=== PATIENT | male | born 1995 | race African-American/Black ===

== ENCOUNTER 2019-06-28 09:36 | Inpatient (IN) | payer MEDICAID ==
[~2019-06-28] VITALS: Ht 188 cm; Wt 65.9 kg
--- NOTE | 2019-06-28 09:53 | NUR ---
Patient from triage with steady gait. C/O diffuse abdminal pain. Decreased PO intake, N/V/D. Appears uncomfortable
[2019-06-28] MEDS ORDERED: FAMOTIDINE 20 MG/2 ML IVPush ONE (10:00)
[2019-06-28] MEDS ORDERED: SODIUM CHLORIDE FLUSH 10ML SYR IVF ONE (10:00)
[2019-06-28] MEDS ORDERED: SODIUM CHLORIDE 0.9% 1,000ML IVBOLUS ONE (10:00)
[2019-06-28] MEDS ORDERED: MORPHINE SULFATE 4 MG/ML, 1ML IVPush PRN ×2 (10:00→13:30)
[2019-06-28] MEDS ORDERED: ONDANSETRON 2MG/ML, 2ML IVPush ONE (10:00)
[2019-06-28 10:36] LABS: MEAN CORPUSCULAR HEMOGLOBIN 37.8 pg (27.5-34.5); MEAN CORPUSCULAR HGB CONC 33.4 g/dL (33.2-36.2); MEAN CORPUSCULAR VOLUME 113.2 fL (81-97); MEAN PLATELET VOLUME 7.6 fL (7.4-10.4); PLATELET COUNT 361 x10^3/uL (130-400); RED BLOOD COUNT 3.46 x10^6/uL (4.38-5.82); RED CELL DISTRIBUTION WIDTH 14.4 % (9.4-14.8)
[2019-06-28 10:41] LABS: ALANINE AMINOTRANSFERASE 20 U/L (12-78); ALBUMIN 1.8 g/dL (3.4-5.0); CALCIUM 7.7 mg/dL (8.5-10.1); CHLORIDE 90 mmol/L (98-107); CREATININE 0.41 mg/dL (0.7-1.3)
[2019-06-28 10:43] LABS: ALKALINE PHOSPHATASE 58 U/L (45-117); BILIRUBIN,TOTAL 0.6 mg/dL (0.2-1.0); TOTAL PROTEIN 6.4 g/dL (6.4-8.2)
[2019-06-28 10:52] LABS: ANION GAP 8 mmol/L (5-15); MD YES
[2019-06-28 10:54] LABS: ANISOCYTOSIS 1+; BAND#(MANUAL) 0.28 x10^3/uL; BANDS%(MANUAL) 2 % (0-7); EOS#(MANUAL) 0.14 x10^3/uL (0.0-0.4); EOS% (MANUAL) 1 % (1-7); LYMPHS% (MANUAL) 5 % (22-44); MONOS#(MANUAL) 0.28 x10^3/uL (0.3-2.7); MONOS% (MANUAL) 2 % (2-9); POLYCHROMASIA 1+; SEG#(MANUAL) 12.51 x10^3/uL (1.8-6.8); SEGS% (MANUAL) 90 % (42-75)
[2019-06-28 10:55] LABS: <PLATELET ESTIMATE> ADEQUATE; <PLT MORPHOLOGY> NORMAL PLT MORPH
[2019-06-28 10:57] LABS: TARGET CELLS 1+
[2019-06-28] MEDS ORDERED: ONDANSETRON 2MG/ML, 2ML ONE (11:00)
[2019-06-28] MEDS ORDERED: MORPHINE SULFATE 4 MG/ML, 1ML ONE (11:00)
[2019-06-28] MEDS ORDERED: FAMOTIDINE 20 MG/2 ML ONE (11:01)
[2019-06-28] MEDS ORDERED: POTASSIUM CHLORIDE 40 MEQ in SODIUM CHLORIDE 0.9% 1,000 ML IV ONE (11:17)
[2019-06-28] MEDS ORDERED: NS + 40MEQ KCL 1,000 ML IV ONE ×2 (11:30→12:06)
[2019-06-28] MEDS ORDERED: MAGNESIUM SULFATE 1 GM in SODIUM CHLORIDE 0.9% 50 ML IV ONE (11:30)
[2019-06-28] MEDS ORDERED: OMNIPAQUE 350 MG/ML, 100ML BOTTLE ONE (11:47)
[2019-06-28] MEDS ORDERED: PIPERACILLIN/TAZO/PMX 3.375GM 50 ML ONE (12:53)
[2019-06-28] MEDS ORDERED: VANCOMYCIN PER PHARMACY MC ONE (13:00)
[2019-06-28] MEDS ORDERED: VANCOMYCIN 1,100 MG in SODIUM CHLORIDE 0.9% 250 ML IV ONE (13:00)
[2019-06-28] MEDS ORDERED: PIPERACILLIN/TAZO/PMX 3.375GM 50 ML IVPB ONE (13:00)
[2019-06-28] MEDS ORDERED: POTASSIUM CHLORIDE 20 MEQ in SODIUM CHLORIDE 0.9% 1,000 ML IV ONE (13:27)
[2019-06-28] MEDS ORDERED: ONDANSETRON 2MG/ML, 2ML IVPush PRN (13:30)
[2019-06-28] MEDS ORDERED: SODIUM CHLORIDE FLUSH 10ML SYR IVF PRN (13:30)
[2019-06-28] MEDS ORDERED: MAGNESIUM SULFATE 2 GM, THIAMINE 200 MG, MVI ADULT 10 ML, FOLIC ACID 1 MG in D5%-0.9% N... IV SCH (13:38)
[2019-06-28] MEDS: SODIUM CHLORIDE 0.9% 1,000 ML IV SCH ×2 (13:38→20:35)
--- NOTE | 2019-06-28 13:43 | NUR ---
TASK RN: PT MEDICATED PER EMAR, SECOND PIV PLACED.
[2019-06-28] MEDS ORDERED: LORazepam 0.5MG TABLET PO PRN (14:00)
[2019-06-28] MEDS ORDERED: ACETAMINOPHEN 325 MG TABLET PO PRN (14:00)
[2019-06-28] MEDS ORDERED: POTASSIUM CHLORIDE 40 MEQ in SODIUM CHLORIDE 0.9% 100 ML IV ONE (14:00)
[2019-06-28] MEDS ORDERED: LORazepam 2 MG/ML, 1ML IV PRN ×3 (14:00)
[2019-06-28] MEDS ORDERED: VANCOMYCIN PER PHARMACY MC PRN (14:00)
[2019-06-28] MEDS ORDERED: LORazepam 1MG TABLET PO PRN ×2 (14:00)
--- NOTE | 2019-06-28 14:26 | NUR ---
Report given to Patricia NAIR on 4.
[2019-06-28 14:28] LABS: MICROSCOPIC NOT IND
[2019-06-28 14:35] LABS: CULTURE INDICATED? NO
[2019-06-28 15:05] VITALS: BP 114/71
[2019-06-28] MEDS ORDERED: ELVI1TAB2 PO (15:19)
[2019-06-28] MEDS ORDERED: PHARMACOKINETIC MONITORING MC PRN (15:30)
[2019-06-28] MEDS ORDERED: PHARMACOKINETIC CONSULTATION MC ONE (15:30)
[2019-06-28] MEDS ORDERED: POTASSIUM CHLORIDE 40 MEQ in SODIUM CHLORIDE 0.9% 500 ML IV ONE (15:50)
[2019-06-28] MEDS ORDERED: POTASSIUM PHOSPHATE 22 MEQ in SODIUM CHLORIDE 0.9% 500 ML IV ONE (17:00)
[2019-06-28] MEDS: HYDROmorphone 2 MG/ML, 1ML IVPush PRN ×2 (17:32→20:35)
[2019-06-28 20:00] VITALS: BP 123/76
[2019-06-28] MEDS: PIPERACILLIN/TAZO/PMX 3.375GM 50 ML IV SCH (20:35)
[2019-06-29] MEDS: VANCOMYCIN PMX 1GM/200ML 200 ML IV SCH ×2 (01:05→15:39)
[2019-06-29 02:00] VITALS: BP 121/77
[2019-06-29] MEDS: PIPERACILLIN/TAZO/PMX 3.375GM 50 ML IV SCH ×4 (02:11→20:35)
[2019-06-29] MEDS: HYDROmorphone 2 MG/ML, 1ML IVPush PRN ×7 (04:17→20:36)
[2019-06-29] MEDS ORDERED: HYDROmorphone 1 MG/ML, 1ML VIAL ONE ×2 (05:38→08:50)
[2019-06-29] MEDS: SODIUM CHLORIDE 0.9% 1,000 ML IV SCH ×3 (05:41→15:40)
[2019-06-29 06:04] LABS: MEAN CORPUSCULAR HEMOGLOBIN 37.7 pg (27.5-34.5); MEAN CORPUSCULAR HGB CONC 32.9 g/dL (33.2-36.2); MEAN CORPUSCULAR VOLUME 114.8 fL (81-97); MEAN PLATELET VOLUME 7.8 fL (7.4-10.4); PLATELET COUNT 391 x10^3/uL (130-400); RED BLOOD COUNT 3.12 x10^6/uL (4.38-5.82); RED CELL DISTRIBUTION WIDTH 14.5 % (9.4-14.8)
[2019-06-29 06:12] LABS: ALBUMIN 1.5 g/dL (3.4-5.0); CALCIUM 6.9 mg/dL (8.5-10.1); CHLORIDE 100 mmol/L (98-107)
[2019-06-29 06:19] LABS: ALANINE AMINOTRANSFERASE 18 U/L (12-78); ALKALINE PHOSPHATASE 48 U/L (45-117); ANION GAP 6 mmol/L (5-15); BILIRUBIN,TOTAL 0.9 mg/dL (0.2-1.0); CREATININE 0.55 mg/dL (0.7-1.3); TOTAL PROTEIN 5.3 g/dL (6.4-8.2)
[2019-06-29 06:40] LABS: BASOPHILS # (AUTO) 0.02 x10^3/uL (0-0.1); BASOPHILS % (AUTO) 0 % (0-1); EOSINOPHILS # (AUTO) 0.21 x10^3/uL (0-0.4); EOSINOPHILS % (AUTO) 2 % (1-7); LYMPHOCYTES # (AUTO) 1.17 x10^3/uL (1-3.4); LYMPHOCYTES % (AUTO) 9 % (22-44); MD SCAN; MONOCYTES # (AUTO) 0.86 x10^3/uL (0.2-0.8); MONOCYTES % (AUTO) 6 % (2-9); NEUTROPHILS # (AUTO) 11.07 x10^3/uL (1.8-6.8); NEUTROPHILS % (AUTO) 83 % (42-75)
[2019-06-29] MEDS: SENNA/DOCUSATE TABLET PO SCH (07:35)
[2019-06-29] MEDS: PANTOPRAZOLE 40 MG IV IVPush SCH (07:35)
[2019-06-29 07:48] VITALS: BP 127/87
[2019-06-29] MEDS: ONDANSETRON 2MG/ML, 2ML IVPush PRN ×3 (10:31→22:23)
[2019-06-29 12:41] VITALS: BP 116/70
[2019-06-29] MEDS: D5%-0.45NACL+KCL 40MEQ 1,000 ML IV SCH ×2 (14:30→20:56)
[2019-06-29 20:08] VITALS: BP 114/80
[2019-06-29] MEDS: MELATONIN 5 MG TABLET PO PRN (20:35)
[2019-06-30 01:46] VITALS: BP 112/73
[2019-06-30] MEDS: HYDROmorphone 2 MG/ML, 1ML IVPush PRN ×7 (01:51→22:18)
[2019-06-30] MEDS: PIPERACILLIN/TAZO/PMX 3.375GM 50 ML IV SCH ×4 (01:51→20:10)
[2019-06-30] MEDS: PROMETHAZINE 25 MG/ML, 1ML IM PRN ×2 (02:06→22:52)
[2019-06-30] MEDS: SODIUM CHLORIDE 0.9% 1,000 ML IV SCH ×3 (02:06→22:25)
[2019-06-30] MEDS: VANCOMYCIN PMX 1GM/200ML 200 ML IV SCH (02:51)
[2019-06-30] MEDS: D5%-0.45NACL+KCL 40MEQ 1,000 ML IV SCH (04:55)
[2019-06-30 05:30] LABS: MEAN CORPUSCULAR HEMOGLOBIN 37.9 pg (27.5-34.5); MEAN CORPUSCULAR HGB CONC 32.9 g/dL (33.2-36.2); MEAN CORPUSCULAR VOLUME 115.1 fL (81-97); MEAN PLATELET VOLUME 7.7 fL (7.4-10.4); PLATELET COUNT 337 x10^3/uL (130-400); RED BLOOD COUNT 3.06 x10^6/uL (4.38-5.82); RED CELL DISTRIBUTION WIDTH 14.6 % (9.4-14.8)
[2019-06-30 05:32] LABS: ALBUMIN 1.3 g/dL (3.4-5.0); ANION GAP 6 mmol/L (5-15); CALCIUM 6.9 mg/dL (8.5-10.1); CHLORIDE 100 mmol/L (98-107)
[2019-06-30 06:33] LABS: BASOPHILS # (AUTO) 0.04 x10^3/uL (0-0.1); BASOPHILS % (AUTO) 0 % (0-1); EOSINOPHILS % (AUTO) 1 % (1-7); LYMPHOCYTES % (AUTO) 7 % (22-44); MD SCAN; MONOCYTES # (AUTO) 0.71 x10^3/uL (0.2-0.8); MONOCYTES % (AUTO) 5 % (2-9); NEUTROPHILS % (AUTO) 86 % (42-75)
[2019-06-30] MEDS ORDERED: POTASSIUM CHLORIDE 40 MEQ in SODIUM CHLORIDE 0.9% 500 ML IV ONE (08:00)
[2019-06-30 08:14] VITALS: BP 123/87
[2019-06-30] MEDS: PANTOPRAZOLE 40 MG IV IVPush SCH (08:41)
[2019-06-30] MEDS: SENNA/DOCUSATE TABLET PO SCH (08:43)
[2019-06-30 09:07] LABS: HCT (SEDRATE) 35.2 % (39.2-51.8)
[2019-06-30] MEDS: ONDANSETRON 2MG/ML, 2ML IVPush PRN (09:14)
[2019-06-30 13:19] VITALS: BP 133/88
[2019-06-30] MEDS: EMTRICITABINE HOMEMEDPO SCH ×2 (20:11→22:18)
[2019-06-30] MEDS: COBICISTAT HOMEMEDPO SCH ×2 (20:11→22:18)
[2019-06-30] MEDS: MELATONIN 5 MG TABLET PO PRN (20:11)
[2019-06-30] MEDS: ELVITEGRAVIR HOMEMEDPO SCH ×2 (20:11→22:18)
[2019-06-30] MEDS: [UNRECOGNIZED DRUG - OTHER] HOMEMEDPO SCH ×2 (20:11→22:18)
[2019-06-30] MEDS: TENOFOVIR DISOPROXIL FUMARATE HOMEMEDPO SCH ×2 (20:11→22:18)
[2019-06-30 20:45] VITALS: BP 126/84
[2019-07-01] MEDS: PIPERACILLIN/TAZO/PMX 3.375GM 50 ML IV SCH ×4 (02:11→20:55)
[2019-07-01 02:39] VITALS: BP 118/81
[2019-07-01] MEDS: SODIUM CHLORIDE 0.9% 1,000 ML IV SCH ×2 (05:20→12:22)
[2019-07-01 07:00] VITALS: BP 115/78
[2019-07-01] MEDS: HYDROmorphone 2 MG/ML, 1ML IVPush PRN ×5 (07:43→21:28)
[2019-07-01] MEDS: PANTOPRAZOLE 40 MG IV IVPush SCH (07:43)
[2019-07-01] MEDS: ONDANSETRON 2MG/ML, 2ML IVPush PRN (08:28)
[2019-07-01] MEDS: SENNA/DOCUSATE TABLET PO SCH (08:28)
[2019-07-01 10:55] LABS: MEAN CORPUSCULAR HEMOGLOBIN 37.5 pg (27.5-34.5); MEAN CORPUSCULAR HGB CONC 32.5 g/dL (33.2-36.2); MEAN CORPUSCULAR VOLUME 115.6 fL (81-97); MEAN PLATELET VOLUME 7.8 fL (7.4-10.4); PLATELET COUNT 351 x10^3/uL (130-400); RED BLOOD COUNT 3.01 x10^6/uL (4.38-5.82); RED CELL DISTRIBUTION WIDTH 14.6 % (9.4-14.8)
[2019-07-01 11:00] LABS: ANION GAP 8 mmol/L (5-15); CALCIUM 7.5 mg/dL (8.5-10.1); CHLORIDE 103 mmol/L (98-107); CREATININE 1.04 mg/dL (0.7-1.3)
[2019-07-01 11:12] LABS: BASOPHILS # (AUTO) 0.06 x10^3/uL (0-0.1); BASOPHILS % (AUTO) 0 % (0-1); EOSINOPHILS # (AUTO) 0.16 x10^3/uL (0-0.4); EOSINOPHILS % (AUTO) 1 % (1-7); LYMPHOCYTES # (AUTO) 0.65 x10^3/uL (1-3.4); LYMPHOCYTES % (AUTO) 4 % (22-44); MD SCAN; MONOCYTES # (AUTO) 0.57 x10^3/uL (0.2-0.8); MONOCYTES % (AUTO) 4 % (2-9); NEUTROPHILS # (AUTO) 13.26 x10^3/uL (1.8-6.8); NEUTROPHILS % (AUTO) 90 % (42-75)
[2019-07-01] MEDS ORDERED: POTASSIUM CHLORIDE 40 MEQ in SODIUM CHLORIDE 0.9% 500 ML IV ONE (11:30)
[2019-07-01] MEDS ORDERED: POTASSIUM CHLORIDE 20 MEQ TAB.ER.PRT PO ONE (11:30)
[2019-07-01] MEDS: PROMETHAZINE 25 MG/ML, 1ML IM PRN (11:38)
[2019-07-01 12:32] VITALS: BP 116/80
[2019-07-01 20:02] VITALS: BP 131/86
[2019-07-01] MEDS: TENOFOVIR DISOPROXIL FUMARATE HOMEMEDPO SCH (20:59)
[2019-07-01] MEDS: [UNRECOGNIZED DRUG - OTHER] HOMEMEDPO SCH (20:59)
[2019-07-01] MEDS: EMTRICITABINE HOMEMEDPO SCH (20:59)
[2019-07-01] MEDS: COBICISTAT HOMEMEDPO SCH (20:59)
[2019-07-01] MEDS: ELVITEGRAVIR HOMEMEDPO SCH (20:59)
[2019-07-02] MEDS: SODIUM CHLORIDE 0.9% 1,000 ML IV SCH (01:48)
[2019-07-02 01:51] VITALS: BP 112/78
[2019-07-02] MEDS: PIPERACILLIN/TAZO/PMX 3.375GM 50 ML IV SCH ×4 (03:47→21:45)
[2019-07-02 06:48] LABS: CHLORIDE 109 mmol/L (98-107)
[2019-07-02 06:49] LABS: ANION GAP 9 mmol/L (5-15); CALCIUM 7.4 mg/dL (8.5-10.1); CREATININE 0.89 mg/dL (0.7-1.3)
[2019-07-02 07:04] LABS: MEAN CORPUSCULAR HEMOGLOBIN 37.1 pg (27.5-34.5); MEAN CORPUSCULAR HGB CONC 32.8 g/dL (33.2-36.2); MEAN CORPUSCULAR VOLUME 112.9 fL (81-97); MEAN PLATELET VOLUME 7.9 fL (7.4-10.4); PLATELET COUNT 323 x10^3/uL (130-400); RED BLOOD COUNT 2.85 x10^6/uL (4.38-5.82); RED CELL DISTRIBUTION WIDTH 14.7 % (9.4-14.8)
[2019-07-02 07:07] VITALS: BP 130/90
[2019-07-02 07:52] LABS: BASOPHILS # (AUTO) 0.01 x10^3/uL (0-0.1); BASOPHILS % (AUTO) 0 % (0-1); EOSINOPHILS # (AUTO) 0.05 x10^3/uL (0-0.4); EOSINOPHILS % (AUTO) 0 % (1-7); LYMPHOCYTES # (AUTO) 0.83 x10^3/uL (1-3.4); LYMPHOCYTES % (AUTO) 7 % (22-44); MD SCAN; MONOCYTES # (AUTO) 0.71 x10^3/uL (0.2-0.8); MONOCYTES % (AUTO) 6 % (2-9); NEUTROPHILS # (AUTO) 10.55 x10^3/uL (1.8-6.8); NEUTROPHILS % (AUTO) 87 % (42-75)
[2019-07-02] MEDS: SENNA/DOCUSATE TABLET PO SCH (08:18)
[2019-07-02] MEDS: PANTOPRAZOLE 40 MG IV IVPush SCH (08:18)
[2019-07-02] MEDS: BISACODYL 10 MG SUPP PR ONE ×2 (10:50→10:52)
[2019-07-02 12:23] VITALS: BP 129/90
[2019-07-02] MEDS ORDERED: POTASSIUM CHLORIDE 10 MEQ in SODIUM CHLORIDE 0.9% 1,000 ML IV SCH (13:38)
[2019-07-02] MEDS: POTASSIUM CHLORIDE 10 MEQ in SODIUM CHLORIDE 0.9% 1,000 ML IV SCH ×2 (14:53→21:44)
[2019-07-02] MEDS: HYDROmorphone 2 MG/ML, 1ML IVPush PRN ×2 (15:08→21:45)
[2019-07-02 19:27] VITALS: BP 122/84
[2019-07-02] MEDS: ELVITEGRAVIR HOMEMEDPO SCH (21:00)
[2019-07-02] MEDS: TENOFOVIR DISOPROXIL FUMARATE HOMEMEDPO SCH (21:00)
[2019-07-02] MEDS: COBICISTAT HOMEMEDPO SCH (21:00)
[2019-07-02] MEDS: EMTRICITABINE HOMEMEDPO SCH (21:00)
[2019-07-02] MEDS: [UNRECOGNIZED DRUG - OTHER] HOMEMEDPO SCH (21:00)
[2019-07-03 01:30] VITALS: BP 125/75
[2019-07-03] MEDS: PIPERACILLIN/TAZO/PMX 3.375GM 50 ML IV SCH ×4 (03:00→21:06)
[2019-07-03] MEDS: POTASSIUM CHLORIDE 10 MEQ in SODIUM CHLORIDE 0.9% 1,000 ML IV SCH ×2 (05:18→15:22)
[2019-07-03 08:05] VITALS: BP 130/83
[2019-07-03 08:55] LABS: MEAN CORPUSCULAR HEMOGLOBIN 37.1 pg (27.5-34.5); MEAN CORPUSCULAR HGB CONC 33.5 g/dL (33.2-36.2); MEAN CORPUSCULAR VOLUME 110.9 fL (81-97); MEAN PLATELET VOLUME 7.6 fL (7.4-10.4); PLATELET COUNT 355 x10^3/uL (130-400); RED BLOOD COUNT 2.98 x10^6/uL (4.38-5.82); RED CELL DISTRIBUTION WIDTH 14.4 % (9.4-14.8)
[2019-07-03 08:57] LABS: ALANINE AMINOTRANSFERASE 18 U/L (12-78); ALBUMIN 1.4 g/dL (3.4-5.0); ANION GAP 11 mmol/L (5-15); CALCIUM 7.5 mg/dL (8.5-10.1); CHLORIDE 110 mmol/L (98-107)
[2019-07-03 08:59] LABS: ALKALINE PHOSPHATASE 49 U/L (45-117); BILIRUBIN,TOTAL 0.8 mg/dL (0.2-1.0)
[2019-07-03] MEDS: PANTOPRAZOLE 40 MG IV IVPush SCH (09:09)
[2019-07-03] MEDS: SENNA/DOCUSATE TABLET PO SCH (09:09)
[2019-07-03 09:17] LABS: BASOPHILS # (AUTO) 0.02 x10^3/uL (0-0.1); BASOPHILS % (AUTO) 0 % (0-1); EOSINOPHILS # (AUTO) 0.03 x10^3/uL (0-0.4); EOSINOPHILS % (AUTO) 0 % (1-7); LYMPHOCYTES # (AUTO) 0.52 x10^3/uL (1-3.4); LYMPHOCYTES % (AUTO) 5 % (22-44); MD SCAN; MONOCYTES # (AUTO) 0.71 x10^3/uL (0.2-0.8); MONOCYTES % (AUTO) 6 % (2-9); NEUTROPHILS # (AUTO) 9.91 x10^3/uL (1.8-6.8); NEUTROPHILS % (AUTO) 89 % (42-75)
[2019-07-03 09:57] VITALS: BP 126/89
[2019-07-03 13:38] VITALS: BP 138/81
[2019-07-03] MEDS: ENOXAPARIN 80 MG/0.8 ML SQ SCH (15:22)
[2019-07-03] MEDS: HYDROmorphone 2 MG/ML, 1ML IVPush PRN ×2 (15:23→21:06)
[2019-07-03] MEDS: ONDANSETRON ODT 4 MG PO PRN (15:35)
[2019-07-03 19:25] VITALS: BP 139/75
[2019-07-03 20:00] VITALS: BP 135/66
[2019-07-03] MEDS: COBICISTAT HOMEMEDPO SCH (21:00)
[2019-07-03] MEDS: EMTRICITABINE HOMEMEDPO SCH (21:00)
[2019-07-03] MEDS: ELVITEGRAVIR HOMEMEDPO SCH (21:00)
[2019-07-03] MEDS: [UNRECOGNIZED DRUG - OTHER] HOMEMEDPO SCH (21:00)
[2019-07-03] MEDS: TENOFOVIR DISOPROXIL FUMARATE HOMEMEDPO SCH (21:00)
[2019-07-04 02:41] VITALS: BP 125/68
[2019-07-04] MEDS: PIPERACILLIN/TAZO/PMX 3.375GM 50 ML IV SCH ×4 (03:36→23:07)
[2019-07-04] MEDS: ENOXAPARIN 80 MG/0.8 ML SQ SCH ×2 (03:36→22:19)
[2019-07-04] MEDS: HYDROmorphone 2 MG/ML, 1ML IVPush PRN ×3 (03:36→19:44)
[2019-07-04] MEDS: SENNA/DOCUSATE TABLET PO SCH (07:27)
[2019-07-04 08:42] VITALS: BP 136/72
[2019-07-04 08:44] LABS: ALANINE AMINOTRANSFERASE 20 U/L (12-78); ALBUMIN 1.3 g/dL (3.4-5.0); ANION GAP 9 mmol/L (5-15); CALCIUM 7.3 mg/dL (8.5-10.1); CHLORIDE 108 mmol/L (98-107)
[2019-07-04 08:47] LABS: ALKALINE PHOSPHATASE 41 U/L (45-117); BILIRUBIN,TOTAL 0.4 mg/dL (0.2-1.0); CREATININE 0.81 mg/dL (0.7-1.3); TOTAL PROTEIN 5.6 g/dL (6.4-8.2)
[2019-07-04] MEDS: PANTOPRAZOLE 40 MG IV IVPush SCH (08:53)
[2019-07-04] MEDS ORDERED: POTASSIUM CHLORIDE 20 MEQ TAB.ER.PRT PO ONE (09:30)
[2019-07-04] MEDS ORDERED: POTASSIUM CHLORIDE 40 MEQ in SODIUM CHLORIDE 0.9% 500 ML IV ONE (09:30)
[2019-07-04 10:06] LABS: BASOPHILS # (AUTO) 0.03 x10^3/uL (0-0.1); BASOPHILS % (AUTO) 0 % (0-1); EOSINOPHILS # (AUTO) 0.01 x10^3/uL (0-0.4); EOSINOPHILS % (AUTO) 0 % (1-7); LYMPHOCYTES # (AUTO) 1.01 x10^3/uL (1-3.4); LYMPHOCYTES % (AUTO) 13 % (22-44); MD SCAN; MEAN CORPUSCULAR HEMOGLOBIN 36.7 pg (27.5-34.5); MEAN CORPUSCULAR VOLUME 111.3 fL (81-97); MEAN PLATELET VOLUME 7.7 fL (7.4-10.4); MONOCYTES # (AUTO) 0.53 x10^3/uL (0.2-0.8); MONOCYTES % (AUTO) 7 % (2-9); NEUTROPHILS # (AUTO) 6.19 x10^3/uL (1.8-6.8); NEUTROPHILS % (AUTO) 80 % (42-75); PLATELET COUNT 333 x10^3/uL (130-400); RED BLOOD COUNT 2.67 x10^6/uL (4.38-5.82); RED CELL DISTRIBUTION WIDTH 14.6 % (9.4-14.8)
[2019-07-04] MEDS ORDERED: OMNIPAQUE 350 MG/ML, 100ML BOTTLE ONE (11:16)
[2019-07-04] MEDS ORDERED: MAGNESIUM SULFATE PMX 2GM/50ML 50 ML IV ONE (11:30)
[2019-07-04] MEDS: NEUTRA PHOS K 250 MG TABLET PO SCH ×3 (12:24→21:58)
[2019-07-04 13:50] VITALS: BP 121/78
[2019-07-04] MEDS ORDERED: LIDOCAINE 1%, 10ML ONE (14:57)
[2019-07-04 18:52] LABS: CLOSTRIDIUM DIFFICILE ANTIGEN NEGATIVE; CLOSTRIDIUM DIFFICILE TOXIN NEGATIVE (Negative); CRYPTOSPORIDIUM ANTIGEN Negative (Negative)
[2019-07-04 20:36] VITALS: BP 122/81
[2019-07-04] MEDS: [UNRECOGNIZED DRUG - OTHER] HOMEMEDPO SCH (21:00)
[2019-07-04] MEDS: TENOFOVIR DISOPROXIL FUMARATE HOMEMEDPO SCH (21:00)
[2019-07-04] MEDS: EMTRICITABINE HOMEMEDPO SCH (21:00)
[2019-07-04] MEDS: COBICISTAT HOMEMEDPO SCH (21:00)
[2019-07-04] MEDS: ELVITEGRAVIR HOMEMEDPO SCH (21:00)
[2019-07-05 00:55] VITALS: BP 102/60
[2019-07-05] MEDS: HYDROmorphone 2 MG/ML, 1ML IVPush PRN ×4 (01:46→20:01)
[2019-07-05] MEDS: ONDANSETRON 2MG/ML, 2ML IVPush PRN (02:05)
[2019-07-05] MEDS: PIPERACILLIN/TAZO/PMX 3.375GM 50 ML IV SCH ×3 (05:03→17:48)
[2019-07-05 06:10] LABS: MEAN CORPUSCULAR HEMOGLOBIN 37.3 pg (27.5-34.5); MEAN CORPUSCULAR HGB CONC 33.1 g/dL (33.2-36.2); MEAN CORPUSCULAR VOLUME 112.7 fL (81-97); MEAN PLATELET VOLUME 7.9 fL (7.4-10.4); PLATELET COUNT 270 x10^3/uL (130-400); RED BLOOD COUNT 2.36 x10^6/uL (4.38-5.82); RED CELL DISTRIBUTION WIDTH 14.7 % (9.4-14.8)
[2019-07-05 06:20] LABS: ALBUMIN 0.9 g/dL (3.4-5.0); CALCIUM 6.7 mg/dL (8.5-10.1); CHLORIDE 107 mmol/L (98-107)
[2019-07-05 06:27] LABS: ALANINE AMINOTRANSFERASE 12 U/L (12-78); ALKALINE PHOSPHATASE 27 U/L (45-117); BILIRUBIN,TOTAL 0.2 mg/dL (0.2-1.0); CREATININE 0.67 mg/dL (0.7-1.3); TOTAL PROTEIN 4.3 g/dL (6.4-8.2)
[2019-07-05 06:35] LABS: ANION GAP 7 mmol/L (5-15)
[2019-07-05 06:41] LABS: BASOPHILS # (AUTO) 0.02 x10^3/uL (0-0.1); BASOPHILS % (AUTO) 0 % (0-1); EOSINOPHILS # (AUTO) 0.08 x10^3/uL (0-0.4); EOSINOPHILS % (AUTO) 1 % (1-7); LYMPHOCYTES % (AUTO) 22 % (22-44); MD SCAN; MONOCYTES # (AUTO) 0.41 x10^3/uL (0.2-0.8); MONOCYTES % (AUTO) 6 % (2-9); NEUTROPHILS # (AUTO) 4.83 x10^3/uL (1.8-6.8); NEUTROPHILS % (AUTO) 71 % (42-75)
[2019-07-05] MEDS ORDERED: POTASSIUM CHLORIDE 20 MEQ TAB.ER.PRT PO ONE ×3 (07:30→19:00)
[2019-07-05] MEDS ORDERED: POTASSIUM PHOSPHATE 22 MEQ in SODIUM CHLORIDE 0.9% 500 ML IV ONE (07:30)
[2019-07-05] MEDS: PANTOPRAZOLE 40 MG IV IVPush SCH (07:56)
[2019-07-05] MEDS: NEUTRA PHOS K 250 MG TABLET PO SCH ×3 (07:56→20:01)
[2019-07-05] MEDS: SENNA/DOCUSATE TABLET PO SCH (07:57)
[2019-07-05 08:05] VITALS: BP 111/74
[2019-07-05] MEDS: ENOXAPARIN 80 MG/0.8 ML SQ SCH ×2 (09:42→22:48)
[2019-07-05] MEDS ORDERED: POTASSIUM CHLORIDE 20 MEQ in SODIUM CHLORIDE 0.9% 250 ML IV ONE (14:00)
[2019-07-05 16:30] VITALS: BP 124/79
[2019-07-05] MEDS: LOPERAMIDE 2 MG CAPSULE PO PRN (16:44)
[2019-07-05] MEDS: [UNRECOGNIZED DRUG - OTHER] HOMEMEDPO SCH (20:02)
[2019-07-05] MEDS: TENOFOVIR DISOPROXIL FUMARATE HOMEMEDPO SCH (20:02)
[2019-07-05] MEDS: COBICISTAT HOMEMEDPO SCH (20:02)
[2019-07-05] MEDS: EMTRICITABINE HOMEMEDPO SCH (20:02)
[2019-07-05] MEDS: ELVITEGRAVIR HOMEMEDPO SCH (20:02)
[2019-07-05 20:15] VITALS: BP 126/76
[2019-07-06] MEDS: PIPERACILLIN/TAZO/PMX 3.375GM 50 ML IV SCH ×4 (00:02→17:20)
[2019-07-06] MEDS: HYDROmorphone 2 MG/ML, 1ML IVPush PRN ×4 (00:02→21:24)
[2019-07-06 01:46] VITALS: BP 135/80
[2019-07-06 06:26] LABS: MEAN CORPUSCULAR HEMOGLOBIN 37.1 pg (27.5-34.5); MEAN CORPUSCULAR HGB CONC 33.1 g/dL (33.2-36.2); MEAN PLATELET VOLUME 8.3 fL (7.4-10.4); PLATELET COUNT 266 x10^3/uL (130-400); RED BLOOD COUNT 2.57 x10^6/uL (4.38-5.82); RED CELL DISTRIBUTION WIDTH 14.3 % (9.4-14.8)
[2019-07-06 06:49] LABS: BASOPHILS # (AUTO) 0.01 x10^3/uL (0-0.1); BASOPHILS % (AUTO) 0 % (0-1); EOSINOPHILS # (AUTO) 0.12 x10^3/uL (0-0.4); EOSINOPHILS % (AUTO) 2 % (1-7); LYMPHOCYTES # (AUTO) 1.47 x10^3/uL (1-3.4); LYMPHOCYTES % (AUTO) 20 % (22-44); MD SCAN; MONOCYTES # (AUTO) 0.41 x10^3/uL (0.2-0.8); MONOCYTES % (AUTO) 5 % (2-9); NEUTROPHILS # (AUTO) 5.52 x10^3/uL (1.8-6.8); NEUTROPHILS % (AUTO) 73 % (42-75)
[2019-07-06 07:16] VITALS: BP 100/61
[2019-07-06] MEDS: ENOXAPARIN 80 MG/0.8 ML SQ SCH ×2 (08:29→21:23)
[2019-07-06] MEDS: NEUTRA PHOS K 250 MG TABLET PO SCH ×3 (08:29→21:23)
[2019-07-06] MEDS: PANTOPRAZOLE 40 MG IV IVPush SCH (08:29)
[2019-07-06] MEDS: SENNA/DOCUSATE TABLET PO SCH (08:30)
[2019-07-06] MEDS ORDERED: POTASSIUM CHLORIDE 10% 40 MEQ/30 ML UDC PO SCH (09:30)
[2019-07-06 09:31] LABS: ANION GAP 7 mmol/L (5-15); CALCIUM 6.7 mg/dL (8.5-10.1); CHLORIDE 110 mmol/L (98-107); CREATININE 0.57 mg/dL (0.7-1.3)
[2019-07-06] MEDS ORDERED: MAGNESIUM SULFATE PMX 2GM/50ML 50 ML IV ONE ×2 (10:00→17:00)
[2019-07-06] MEDS ORDERED: POTASSIUM PHOSPHATE 44 MEQ in SODIUM CHLORIDE 0.9% 500 ML IV ONE (10:00)
[2019-07-06] MEDS: POTASSIUM CHLORIDE 20 MEQ TAB.ER.PRT PO SCH ×3 (11:06→21:23)
[2019-07-06 14:57] VITALS: BP 112/68
[2019-07-06] MEDS: COBICISTAT HOMEMEDPO SCH (19:07)
[2019-07-06] MEDS: [UNRECOGNIZED DRUG - OTHER] HOMEMEDPO SCH (19:07)
[2019-07-06] MEDS: TENOFOVIR DISOPROXIL FUMARATE HOMEMEDPO SCH (19:07)
[2019-07-06] MEDS: ELVITEGRAVIR HOMEMEDPO SCH (19:07)
[2019-07-06] MEDS: EMTRICITABINE HOMEMEDPO SCH (19:07)
[2019-07-06 21:07] VITALS: BP 102/65
[2019-07-07] MEDS: PIPERACILLIN/TAZO/PMX 3.375GM 50 ML IV SCH ×4 (03:11→21:56)
[2019-07-07] MEDS: HYDROmorphone 2 MG/ML, 1ML IVPush PRN ×5 (03:11→21:57)
[2019-07-07 03:12] VITALS: BP 116/65
[2019-07-07 05:19] LABS: MEAN CORPUSCULAR HEMOGLOBIN 36.9 pg (27.5-34.5); MEAN CORPUSCULAR HGB CONC 32.9 g/dL (33.2-36.2); MEAN CORPUSCULAR VOLUME 112.2 fL (81-97); MEAN PLATELET VOLUME 8.2 fL (7.4-10.4); PLATELET COUNT 221 x10^3/uL (130-400); RED BLOOD COUNT 2.44 x10^6/uL (4.38-5.82); RED CELL DISTRIBUTION WIDTH 15.1 % (9.4-14.8)
[2019-07-07 05:31] LABS: ANION GAP 7 mmol/L (5-15); CALCIUM 6.7 mg/dL (8.5-10.1); CHLORIDE 110 mmol/L (98-107); CREATININE 0.53 mg/dL (0.7-1.3)
[2019-07-07 06:35] LABS: BASOPHILS # (AUTO) 0.03 x10^3/uL (0-0.1); BASOPHILS % (AUTO) 0 % (0-1); EOSINOPHILS # (AUTO) 0.13 x10^3/uL (0-0.4); EOSINOPHILS % (AUTO) 2 % (1-7); LYMPHOCYTES # (AUTO) 1.41 x10^3/uL (1-3.4); LYMPHOCYTES % (AUTO) 17 % (22-44); MD SCAN; MONOCYTES # (AUTO) 0.48 x10^3/uL (0.2-0.8); MONOCYTES % (AUTO) 6 % (2-9); NEUTROPHILS % (AUTO) 75 % (42-75)
[2019-07-07 07:44] VITALS: BP 105/65
[2019-07-07] MEDS: PANTOPRAZOLE 40 MG IV IVPush SCH (07:50)
[2019-07-07] MEDS: SENNA/DOCUSATE TABLET PO SCH (09:00)
[2019-07-07] MEDS: ENOXAPARIN 80 MG/0.8 ML SQ SCH ×2 (09:28→21:56)
[2019-07-07] MEDS: POTASSIUM CHLORIDE 20 MEQ TAB.ER.PRT PO SCH ×3 (09:28→21:56)
[2019-07-07] MEDS: NEUTRA PHOS K 250 MG TABLET PO SCH ×3 (09:28→21:56)
[2019-07-07] MEDS ORDERED: POTASSIUM CHLORIDE 20 MEQ TAB.ER.PRT PO SCH (09:30)
[2019-07-07] MEDS ORDERED: SENNA/DOCUSATE TABLET PO PRN (09:30)
[2019-07-07 14:25] VITALS: BP 114/62
[2019-07-07] MEDS: METOPROLOL TARTRATE 25 MG TABLET PO SCH (18:02)
[2019-07-07 19:44] VITALS: BP 112/79
[2019-07-07] MEDS: TENOFOVIR DISOPROXIL FUMARATE HOMEMEDPO SCH (21:00)
[2019-07-07] MEDS: EMTRICITABINE HOMEMEDPO SCH (21:00)
[2019-07-07] MEDS: COBICISTAT HOMEMEDPO SCH (21:00)
[2019-07-07] MEDS: [UNRECOGNIZED DRUG - OTHER] HOMEMEDPO SCH (21:00)
[2019-07-07] MEDS: ELVITEGRAVIR HOMEMEDPO SCH (21:00)
[2019-07-08] MEDS: HYDROmorphone 2 MG/ML, 1ML IVPush PRN ×6 (02:05→22:26)
[2019-07-08 02:39] VITALS: BP 114/71
[2019-07-08] MEDS: PIPERACILLIN/TAZO/PMX 3.375GM 50 ML IV SCH ×3 (04:25→21:11)
[2019-07-08] MEDS: METOPROLOL TARTRATE 25 MG TABLET PO SCH (06:00)
[2019-07-08 07:00] LABS: ALBUMIN 0.9 g/dL (3.4-5.0); ANION GAP 4 mmol/L (5-15); CALCIUM 6.9 mg/dL (8.5-10.1); CHLORIDE 111 mmol/L (98-107)
[2019-07-08 07:03] LABS: ALANINE AMINOTRANSFERASE 16 U/L (12-78); ALKALINE PHOSPHATASE 36 U/L (45-117); BILIRUBIN,TOTAL 0.3 mg/dL (0.2-1.0); CREATININE 0.46 mg/dL (0.7-1.3); TOTAL PROTEIN 4.8 g/dL (6.4-8.2)
[2019-07-08 07:50] VITALS: BP 102/66
[2019-07-08] MEDS: PANTOPRAZOLE 40 MG IV IVPush SCH (08:10)
[2019-07-08] MEDS: POTASSIUM CHLORIDE 20 MEQ TAB.ER.PRT PO SCH ×3 (08:10→21:46)
[2019-07-08] MEDS: NEUTRA PHOS K 250 MG TABLET PO SCH ×3 (08:11→21:46)
[2019-07-08] MEDS ORDERED: ACETAMINOPHEN 325 MG TABLET PO PRN (10:00)
[2019-07-08] MEDS ORDERED: MAGNESIUM SULFATE PMX 4GM/100M 100 ML IV ONE (10:00)
[2019-07-08] MEDS ORDERED: HYDROmorphone 1 MG/ML, 1ML VIAL ONE (10:13)
[2019-07-08] MEDS: LACTOBACILLUS CHEW TABLET PO SCH ×3 (10:21→21:46)
[2019-07-08] MEDS: ENOXAPARIN 80 MG/0.8 ML SQ SCH ×2 (10:27→21:46)
[2019-07-08] MEDS: ONDANSETRON 2MG/ML, 2ML IVPush PRN (12:58)
[2019-07-08 14:24] VITALS: BP 102/57
[2019-07-08] MEDS: OMEPRAZOLE 20 MG CAPSULE.DR PO SCH (15:43)
[2019-07-08 20:27] LABS: OCCULT BLOOD NEGATIVE (NEGATIVE)
[2019-07-08] MEDS: COBICISTAT HOMEMEDPO SCH (21:00)
[2019-07-08] MEDS: TENOFOVIR DISOPROXIL FUMARATE HOMEMEDPO SCH (21:00)
[2019-07-08] MEDS: EMTRICITABINE HOMEMEDPO SCH (21:00)
[2019-07-08] MEDS: ELVITEGRAVIR HOMEMEDPO SCH (21:00)
[2019-07-08] MEDS: [UNRECOGNIZED DRUG - OTHER] HOMEMEDPO SCH (21:00)
[2019-07-08 21:12] VITALS: BP 108/73
[2019-07-09 02:33] VITALS: BP 116/70
[2019-07-09] MEDS: PIPERACILLIN/TAZO/PMX 3.375GM 50 ML IV SCH ×4 (02:58→21:24)
[2019-07-09] MEDS: HYDROmorphone 2 MG/ML, 1ML IVPush PRN ×6 (02:59→19:29)
[2019-07-09] MEDS: OMEPRAZOLE 20 MG CAPSULE.DR PO SCH ×2 (05:06→16:06)
[2019-07-09 07:23] LABS: ANION GAP 5 mmol/L (5-15); CALCIUM 7.2 mg/dL (8.5-10.1); CHLORIDE 111 mmol/L (98-107)
[2019-07-09 07:26] LABS: % IRON SATURATION 40 % (20-55); CREATININE 0.51 mg/dL (0.7-1.3); IRON LEVEL 29 mcg/dL (65-175); TOTAL IRON BINDING CAPACITY 72 mcg/dL (250-450)
[2019-07-09 07:31] VITALS: BP 109/73
[2019-07-09] MEDS: NEUTRA PHOS K 250 MG TABLET PO SCH ×3 (08:09→21:24)
[2019-07-09] MEDS: LACTOBACILLUS CHEW TABLET PO SCH ×3 (08:09→21:24)
[2019-07-09] MEDS: POTASSIUM CHLORIDE 20 MEQ TAB.ER.PRT PO SCH (08:09)
[2019-07-09] MEDS: ENOXAPARIN 80 MG/0.8 ML SQ SCH ×2 (11:49→21:24)
[2019-07-09] MEDS: ONDANSETRON 2MG/ML, 2ML IVPush PRN (11:54)
[2019-07-09 12:34] VITALS: BP 114/73
[2019-07-09] MEDS ORDERED: TPN PER PHARMACY MC PRN (13:00)
[2019-07-09] MEDS ORDERED: HYDROmorphone 1 MG/ML, 1ML VIAL ONE (15:33)
[2019-07-09] MEDS: ACETAMINOPHEN 325 MG TABLET PO SCH ×2 (15:39→21:24)
[2019-07-09] MEDS ORDERED: DEXTROSE 70% IV SCH (17:00)
[2019-07-09] MEDS ORDERED: AMINO ACID 10% IV SCH (17:00)
[2019-07-09] MEDS ORDERED: FAT EMUL IV SCH (17:00)
[2019-07-09] MEDS ORDERED: DEXTROSE 50%, 50ML SYRINGE IVPush PRN (17:00)
[2019-07-09] MEDS ORDERED: [UNRECOGNIZED DRUG - OTHER] IV SCH (17:00)
[2019-07-09] MEDS ORDERED: DEXTROSE 10% 500 ML IV PRN (17:00)
[2019-07-09] MEDS ORDERED: SMOF TPN IV SCH (17:00)
[2019-07-09] MEDS: FILTER, DISP 1.2 MICRON FOR TPN/PVN IV PRN (18:02)
[2019-07-09 20:27] VITALS: BP 94/61
[2019-07-09] MEDS: COBICISTAT HOMEMEDPO SCH (21:00)
[2019-07-09] MEDS: EMTRICITABINE HOMEMEDPO SCH (21:00)
[2019-07-09] MEDS: [UNRECOGNIZED DRUG - OTHER] HOMEMEDPO SCH (21:00)
[2019-07-09] MEDS: TENOFOVIR DISOPROXIL FUMARATE HOMEMEDPO SCH (21:00)
[2019-07-09] MEDS: INSULIN REGULAR LOW DOSE Q6H X 48HRS SQ-INSULIN SCH (21:00)
[2019-07-09] MEDS: ELVITEGRAVIR HOMEMEDPO SCH (21:00)
[2019-07-10 01:04] VITALS: BP 101/71
[2019-07-10] MEDS: INSULIN REGULAR LOW DOSE Q6H X 48HRS SQ-INSULIN SCH ×4 (03:00→20:14)
[2019-07-10] MEDS: PIPERACILLIN/TAZO/PMX 3.375GM 50 ML IV SCH (03:41)
[2019-07-10] MEDS: ACETAMINOPHEN 325 MG TABLET PO SCH ×4 (03:41→21:37)
[2019-07-10] MEDS: HYDROmorphone 2 MG/ML, 1ML IVPush PRN (03:42)
[2019-07-10 04:29] LABS: ANION GAP 3 mmol/L (5-15); CALCIUM 7.2 mg/dL (8.5-10.1); CHLORIDE 110 mmol/L (98-107)
[2019-07-10 04:38] LABS: TRIGLYCERIDES 146 mg/dL (50-200)
[2019-07-10] MEDS: OMEPRAZOLE 20 MG CAPSULE.DR PO SCH ×2 (06:01→08:17)
[2019-07-10 07:16] VITALS: BP 115/82
[2019-07-10] MEDS: LACTOBACILLUS CHEW TABLET PO SCH ×3 (08:17→20:13)
[2019-07-10] MEDS: NEUTRA PHOS K 250 MG TABLET PO SCH ×3 (08:17→20:13)
[2019-07-10] MEDS: HYDROmorphone 1 MG/ML, 1ML VIAL IVPush PRN ×3 (08:18→23:28)
[2019-07-10] MEDS ORDERED: POTASSIUM CHLORIDE 20 MEQ TAB.ER.PRT PO SCH (09:00)
[2019-07-10] MEDS: ENOXAPARIN 80 MG/0.8 ML SQ SCH ×2 (09:51→21:37)
[2019-07-10] MEDS: ONDANSETRON 2MG/ML, 2ML IVPush PRN (12:51)
[2019-07-10] MEDS: OXYcodone IR 5MG TABLET PO PRN ×2 (13:07→20:13)
[2019-07-10 13:15] VITALS: BP 114/78
[2019-07-10] MEDS ORDERED: HYDROmorphone 1 MG/ML, 1ML INJ ONE ×2 (16:27→23:25)
[2019-07-10] MEDS ORDERED: FAT EMUL IV SCH (17:00)
[2019-07-10] MEDS ORDERED: DEXTROSE 70% IV SCH (17:00)
[2019-07-10] MEDS ORDERED: SMOF TPN IV SCH (17:00)
[2019-07-10] MEDS ORDERED: [UNRECOGNIZED DRUG - OTHER] IV SCH (17:00)
[2019-07-10] MEDS ORDERED: AMINO ACID 10% IV SCH (17:00)
[2019-07-10 19:41] VITALS: BP 109/73
[2019-07-10] MEDS: EMTRICITABINE HOMEMEDPO SCH (20:13)
[2019-07-10] MEDS: ELVITEGRAVIR HOMEMEDPO SCH (20:13)
[2019-07-10] MEDS: [UNRECOGNIZED DRUG - OTHER] HOMEMEDPO SCH (20:13)
[2019-07-10] MEDS: TENOFOVIR DISOPROXIL FUMARATE HOMEMEDPO SCH (20:13)
[2019-07-10] MEDS: COBICISTAT HOMEMEDPO SCH (20:13)
[2019-07-10] MEDS: FILTER, DISP 1.2 MICRON FOR TPN/PVN IV PRN (23:28)
[2019-07-11 00:19] VITALS: BP 109/71
[2019-07-11] MEDS: INSULIN REGULAR LOW DOSE Q6H X 48HRS SQ-INSULIN SCH ×2 (03:00→08:14)
[2019-07-11] MEDS: ACETAMINOPHEN 325 MG TABLET PO SCH ×4 (03:30→21:30)
[2019-07-11] MEDS ORDERED: HYDROmorphone 1 MG/ML, 1ML INJ ONE ×3 (05:29→18:32)
[2019-07-11] MEDS: HYDROmorphone 1 MG/ML, 1ML VIAL IVPush PRN ×3 (05:32→18:36)
[2019-07-11 05:44] LABS: CHLORIDE 109 mmol/L (98-107)
[2019-07-11 05:51] LABS: ANION GAP 4 mmol/L (5-15); CALCIUM 7.3 mg/dL (8.5-10.1); CREATININE 0.47 mg/dL (0.7-1.3)
[2019-07-11] MEDS: ENOXAPARIN 60 MG/0.6 ML SQ SCH ×2 (08:13→20:38)
[2019-07-11] MEDS: LACTOBACILLUS CHEW TABLET PO SCH ×3 (08:13→20:38)
[2019-07-11] MEDS: OMEPRAZOLE 20 MG CAPSULE.DR PO SCH (08:13)
[2019-07-11] MEDS: NEUTRA PHOS K 250 MG TABLET PO SCH ×3 (08:13→20:38)
[2019-07-11] MEDS: OXYcodone IR 5MG TABLET PO PRN ×2 (08:24→16:30)
[2019-07-11 12:27] VITALS: BP 110/73
[2019-07-11] MEDS ORDERED: FAT EMUL IV SCH (17:00)
[2019-07-11] MEDS ORDERED: SMOF TPN IV SCH (17:00)
[2019-07-11] MEDS ORDERED: FILTER, DISP 1.2 MICRON FOR TPN/PVN IV PRN (17:00)
[2019-07-11] MEDS ORDERED: AMINO ACID 10% IV SCH (17:00)
[2019-07-11] MEDS ORDERED: [UNRECOGNIZED DRUG - OTHER] IV SCH (17:00)
[2019-07-11] MEDS ORDERED: DEXTROSE 70% IV SCH (17:00)
[2019-07-11 18:41] VITALS: BP 102/70
[2019-07-11] MEDS: [UNRECOGNIZED DRUG - OTHER] HOMEMEDPO SCH (20:38)
[2019-07-11] MEDS: EMTRICITABINE HOMEMEDPO SCH (20:38)
[2019-07-11] MEDS: ELVITEGRAVIR HOMEMEDPO SCH (20:38)
[2019-07-11] MEDS: TENOFOVIR DISOPROXIL FUMARATE HOMEMEDPO SCH (20:38)
[2019-07-11] MEDS: MELATONIN 5 MG TABLET PO PRN (20:38)
[2019-07-11] MEDS: COBICISTAT HOMEMEDPO SCH (20:38)
[2019-07-12] MEDS ORDERED: HYDROmorphone 1 MG/ML, 1ML INJ ONE ×4 (00:25→20:55)
[2019-07-12] MEDS: HYDROmorphone 1 MG/ML, 1ML VIAL IVPush PRN ×4 (00:29→20:59)
[2019-07-12 00:51] VITALS: BP 101/68
[2019-07-12] MEDS: ACETAMINOPHEN 325 MG TABLET PO SCH ×4 (03:30→20:59)
[2019-07-12 06:51] LABS: ANION GAP 4 mmol/L (5-15); CALCIUM 7.5 mg/dL (8.5-10.1); CHLORIDE 107 mmol/L (98-107)
[2019-07-12 06:56] LABS: CREATININE 0.44 mg/dL (0.7-1.3)
[2019-07-12 07:16] VITALS: BP 124/86
[2019-07-12] MEDS: ENOXAPARIN 60 MG/0.6 ML SQ SCH ×3 (08:23→21:00)
[2019-07-12] MEDS: NEUTRA PHOS K 250 MG TABLET PO SCH ×3 (08:24→20:35)
[2019-07-12] MEDS: LACTOBACILLUS CHEW TABLET PO SCH ×3 (08:24→20:35)
[2019-07-12] MEDS: OMEPRAZOLE 20 MG CAPSULE.DR PO SCH (08:24)
[2019-07-12] MEDS: INSULIN REGULAR LOW DOSE QDAY SQ-INSULIN SCH (08:58)
[2019-07-12] MEDS: OXYcodone IR 5MG TABLET PO PRN ×2 (11:57→20:37)
[2019-07-12 12:47] VITALS: BP 110/76
[2019-07-12] MEDS ORDERED: SMOF TPN IV SCH ×2 (17:00)
[2019-07-12] MEDS ORDERED: FAT EMUL IV SCH ×2 (17:00)
[2019-07-12] MEDS ORDERED: AMINO ACID 10% IV SCH ×2 (17:00)
[2019-07-12] MEDS ORDERED: [UNRECOGNIZED DRUG - OTHER] IV SCH (17:00)
[2019-07-12] MEDS ORDERED: [UNRECOGNIZED DRUG - OTHER] IV SCH (17:00)
[2019-07-12] MEDS ORDERED: DEXTROSE 70% IV SCH ×2 (17:00)
[2019-07-12] MEDS: FILTER, DISP 1.2 MICRON FOR TPN/PVN IV PRN (17:43)
[2019-07-12 19:33] VITALS: BP 119/80
[2019-07-12] MEDS: EMTRICITABINE HOMEMEDPO SCH (20:59)
[2019-07-12] MEDS: TENOFOVIR DISOPROXIL FUMARATE HOMEMEDPO SCH (20:59)
[2019-07-12] MEDS: [UNRECOGNIZED DRUG - OTHER] HOMEMEDPO SCH (20:59)
[2019-07-12] MEDS: COBICISTAT HOMEMEDPO SCH (20:59)
[2019-07-12] MEDS: ELVITEGRAVIR HOMEMEDPO SCH (20:59)
[2019-07-13 03:07] VITALS: BP 115/84
[2019-07-13] MEDS ORDERED: HYDROmorphone 1 MG/ML, 1ML INJ ONE ×4 (03:07→23:21)
[2019-07-13] MEDS: HYDROmorphone 1 MG/ML, 1ML VIAL IVPush PRN ×4 (03:11→23:25)
[2019-07-13] MEDS: ACETAMINOPHEN 325 MG TABLET PO SCH ×5 (03:11→23:42)
[2019-07-13 08:12] VITALS: BP 112/79
[2019-07-13] MEDS: LACTOBACILLUS CHEW TABLET PO SCH ×3 (08:45→21:37)
[2019-07-13] MEDS: OMEPRAZOLE 20 MG CAPSULE.DR PO SCH (08:45)
[2019-07-13] MEDS: NEUTRA PHOS K 250 MG TABLET PO SCH ×3 (08:45→21:37)
[2019-07-13] MEDS: ENOXAPARIN 60 MG/0.6 ML SQ SCH ×2 (08:46→21:00)
[2019-07-13] MEDS: OXYcodone IR 5MG TABLET PO PRN ×3 (08:46→21:41)
[2019-07-13] MEDS: INSULIN REGULAR LOW DOSE QDAY SQ-INSULIN SCH (08:58)
[2019-07-13 09:55] VITALS: BP 166/72
[2019-07-13 13:03] VITALS: BP 121/87
[2019-07-13 13:47] LABS: INTERNATIONAL NORMALIZED RATIO 1.11 (0.93-1.1); PROTHROMBIN TIME 11.6 Seconds (9.6-11.5)
[2019-07-13] MEDS ORDERED: FAT EMUL IV SCH ×2 (17:00)
[2019-07-13] MEDS ORDERED: AMINO ACID 10% IV SCH ×2 (17:00)
[2019-07-13] MEDS ORDERED: [UNRECOGNIZED DRUG - OTHER] IV SCH (17:00)
[2019-07-13] MEDS ORDERED: DEXTROSE 70% IV SCH ×2 (17:00)
[2019-07-13] MEDS ORDERED: SMOF TPN IV SCH ×2 (17:00)
[2019-07-13] MEDS ORDERED: [UNRECOGNIZED DRUG - OTHER] IV SCH (17:00)
[2019-07-13] MEDS ORDERED: WARFARIN 10 MG TABLET PO-COUM ONE (18:00)
[2019-07-13] MEDS: FILTER, DISP 1.2 MICRON FOR TPN/PVN IV PRN (18:11)
[2019-07-13 20:03] VITALS: BP 118/85
[2019-07-13] MEDS: TENOFOVIR DISOPROXIL FUMARATE HOMEMEDPO SCH (21:00)
[2019-07-13] MEDS: [UNRECOGNIZED DRUG - OTHER] HOMEMEDPO SCH (21:00)
[2019-07-13] MEDS: EMTRICITABINE HOMEMEDPO SCH (21:00)
[2019-07-13] MEDS: COBICISTAT HOMEMEDPO SCH (21:00)
[2019-07-13] MEDS: ELVITEGRAVIR HOMEMEDPO SCH (21:00)
[2019-07-13] MEDS: LOPERAMIDE 2 MG CAPSULE PO PRN (23:28)
[2019-07-14 01:19] VITALS: BP 118/79
[2019-07-14] MEDS: ACETAMINOPHEN 325 MG TABLET PO SCH ×4 (03:30→20:24)
[2019-07-14] MEDS ORDERED: HYDROmorphone 1 MG/ML, 1ML INJ ONE ×4 (05:39→23:39)
[2019-07-14] MEDS: HYDROmorphone 1 MG/ML, 1ML VIAL IVPush PRN ×4 (05:44→23:42)
[2019-07-14 06:49] LABS: ANION GAP 5 mmol/L (5-15); CALCIUM 7.8 mg/dL (8.5-10.1); CHLORIDE 110 mmol/L (98-107); CREATININE 0.37 mg/dL (0.7-1.3)
[2019-07-14 07:06] LABS: INTERNATIONAL NORMALIZED RATIO 1.2 (0.93-1.1); PROTHROMBIN TIME 12.5 Seconds (9.6-11.5)
[2019-07-14 07:46] VITALS: BP 119/92
[2019-07-14] MEDS: INSULIN REGULAR LOW DOSE QDAY SQ-INSULIN SCH (08:00)
[2019-07-14] MEDS: OXYcodone IR 5MG TABLET PO PRN ×2 (10:29→16:36)
[2019-07-14] MEDS: LACTOBACILLUS CHEW TABLET PO SCH ×3 (10:30→20:24)
[2019-07-14] MEDS: ENOXAPARIN 60 MG/0.6 ML SQ SCH ×2 (10:30→22:30)
[2019-07-14] MEDS: NEUTRA PHOS K 250 MG TABLET PO SCH ×3 (10:30→20:24)
[2019-07-14] MEDS: OMEPRAZOLE 20 MG CAPSULE.DR PO SCH (10:30)
[2019-07-14] MEDS ORDERED: DEXTROSE 70% IV SCH ×2 (11:30→17:00)
[2019-07-14] MEDS ORDERED: AMINO ACID 10% IV SCH ×2 (11:30→17:00)
[2019-07-14] MEDS ORDERED: SMOF TPN IV SCH ×2 (11:30→17:00)
[2019-07-14] MEDS ORDERED: [UNRECOGNIZED DRUG - OTHER] IV SCH ×2 (11:30→17:00)
[2019-07-14] MEDS ORDERED: FAT EMUL IV SCH ×2 (11:30→17:00)
[2019-07-14] MEDS: WARFARIN HIGH DOSE PROTOCOL XX SCH (12:00)
[2019-07-14 12:42] VITALS: BP 119/80
[2019-07-14] MEDS: FILTER, DISP 1.2 MICRON FOR TPN/PVN IV PRN (16:37)
[2019-07-14] MEDS ORDERED: WARFARIN 7.5 MG TABLET PO-COUM SCH (18:00)
[2019-07-14 19:21] VITALS: BP 112/77
[2019-07-14] MEDS: [UNRECOGNIZED DRUG - OTHER] HOMEMEDPO SCH (20:42)
[2019-07-14] MEDS: COBICISTAT HOMEMEDPO SCH (20:42)
[2019-07-14] MEDS: ELVITEGRAVIR HOMEMEDPO SCH (20:42)
[2019-07-14] MEDS: EMTRICITABINE HOMEMEDPO SCH (20:42)
[2019-07-14] MEDS: TENOFOVIR DISOPROXIL FUMARATE HOMEMEDPO SCH (20:42)
[2019-07-15 01:29] VITALS: BP 111/72
[2019-07-15] MEDS: ACETAMINOPHEN 325 MG TABLET PO SCH ×4 (03:30→21:32)
[2019-07-15 06:12] LABS: INTERNATIONAL NORMALIZED RATIO 1.43 (0.93-1.1); PROTHROMBIN TIME 14.8 Seconds (9.6-11.5)
[2019-07-15 06:13] LABS: CHLORIDE 110 mmol/L (98-107)
[2019-07-15 06:21] LABS: ANION GAP 7 mmol/L (5-15); CALCIUM 7.9 mg/dL (8.5-10.1); CREATININE 0.44 mg/dL (0.7-1.3)
[2019-07-15] MEDS: ALBUTEROL SULFATE 2.5 MG/3 ML NPPB PRN (06:50)
[2019-07-15 07:26] VITALS: BP 127/76
[2019-07-15] MEDS: INSULIN REGULAR LOW DOSE QDAY SQ-INSULIN SCH (08:00)
[2019-07-15] MEDS: LACTOBACILLUS CHEW TABLET PO SCH ×3 (09:11→19:43)
[2019-07-15] MEDS: NEUTRA PHOS K 250 MG TABLET PO SCH ×3 (09:11→19:43)
[2019-07-15] MEDS: OMEPRAZOLE 20 MG CAPSULE.DR PO SCH (09:12)
[2019-07-15] MEDS: ENOXAPARIN 60 MG/0.6 ML SQ SCH ×2 (09:13→21:33)
[2019-07-15] MEDS: WARFARIN HIGH DOSE PROTOCOL XX SCH (12:00)
[2019-07-15 13:57] VITALS: BP 132/89
[2019-07-15] MEDS ORDERED: HYDROmorphone 1 MG/ML, 1ML INJ ONE ×2 (15:29→21:28)
[2019-07-15] MEDS: HYDROmorphone 1 MG/ML, 1ML VIAL IVPush PRN ×2 (15:33→21:33)
[2019-07-15] MEDS: OXYcodone IR 5MG TABLET PO PRN ×2 (16:56→23:00)
[2019-07-15] MEDS ORDERED: SMOF TPN IV SCH (17:00)
[2019-07-15] MEDS ORDERED: FAT EMUL IV SCH (17:00)
[2019-07-15] MEDS ORDERED: [UNRECOGNIZED DRUG - OTHER] IV SCH (17:00)
[2019-07-15] MEDS ORDERED: AMINO ACID 10% IV SCH (17:00)
[2019-07-15] MEDS ORDERED: DEXTROSE 70% IV SCH (17:00)
[2019-07-15] MEDS: FILTER, DISP 1.2 MICRON FOR TPN/PVN IV PRN (17:16)
[2019-07-15] MEDS ORDERED: WARFARIN 7.5 MG TABLET PO-COUM SCH (18:00)
[2019-07-15] MEDS: [UNRECOGNIZED DRUG - OTHER] HOMEMEDPO SCH (19:44)
[2019-07-15] MEDS: EMTRICITABINE HOMEMEDPO SCH (19:44)
[2019-07-15] MEDS: ELVITEGRAVIR HOMEMEDPO SCH (19:44)
[2019-07-15] MEDS: COBICISTAT HOMEMEDPO SCH (19:44)
[2019-07-15] MEDS: TENOFOVIR DISOPROXIL FUMARATE HOMEMEDPO SCH (19:44)
[2019-07-15 21:13] VITALS: BP 109/74
[2019-07-15] MEDS: MELATONIN 5 MG TABLET PO PRN (22:59)
[2019-07-16 01:04] VITALS: BP 139/78
[2019-07-16] MEDS: ACETAMINOPHEN 325 MG TABLET PO SCH ×4 (03:30→22:54)
[2019-07-16] MEDS ORDERED: HYDROmorphone 1 MG/ML, 1ML INJ ONE ×4 (06:14→22:51)
[2019-07-16 07:16] VITALS: BP 157/82
[2019-07-16] MEDS: INSULIN REGULAR LOW DOSE QDAY SQ-INSULIN SCH (08:00)
[2019-07-16 08:33] LABS: INTERNATIONAL NORMALIZED RATIO 1.68 (0.93-1.1); PROTHROMBIN TIME 17.3 Seconds (9.6-11.5)
[2019-07-16 08:35] LABS: ALBUMIN 1.1 g/dL (3.4-5.0); ANION GAP 4 mmol/L (5-15); CALCIUM 7.9 mg/dL (8.5-10.1); CHLORIDE 109 mmol/L (98-107)
[2019-07-16 08:41] LABS: ALANINE AMINOTRANSFERASE 21 U/L (12-78); ALKALINE PHOSPHATASE 84 U/L (45-117); BILIRUBIN,TOTAL 0.1 mg/dL (0.2-1.0); CREATININE 0.42 mg/dL (0.7-1.3); PREALBUMIN 13.1 mg/dL (20.0-40.0); TOTAL PROTEIN 5.9 g/dL (6.4-8.2); TRIGLYCERIDES 149 mg/dL (50-200)
[2019-07-16] MEDS: LACTOBACILLUS CHEW TABLET PO SCH ×3 (09:12→21:08)
[2019-07-16] MEDS: OXYcodone IR 5MG TABLET PO PRN ×2 (09:12→21:09)
[2019-07-16] MEDS: NEUTRA PHOS K 250 MG TABLET PO SCH ×3 (09:12→21:09)
[2019-07-16] MEDS: OMEPRAZOLE 20 MG CAPSULE.DR PO SCH (09:12)
[2019-07-16] MEDS: ENOXAPARIN 60 MG/0.6 ML SQ SCH ×2 (10:11→21:09)
[2019-07-16] MEDS: HYDROmorphone 1 MG/ML, 1ML VIAL IVPush PRN ×3 (10:12→22:55)
[2019-07-16] MEDS ORDERED: DIPHENHYDRAMINE 25 MG CAPSULE PO SCH (10:30)
[2019-07-16] MEDS ORDERED: ACETAMINOPHEN 325 MG TABLET PO SCH (10:30)
[2019-07-16] MEDS: WARFARIN HIGH DOSE PROTOCOL XX SCH (12:00)
[2019-07-16 12:54] VITALS: BP 108/74
[2019-07-16] MEDS ORDERED: AMINO ACID 10% IV SCH ×2 (17:00)
[2019-07-16] MEDS ORDERED: FAT EMUL IV SCH ×2 (17:00)
[2019-07-16] MEDS ORDERED: DEXTROSE 70% IV SCH ×2 (17:00)
[2019-07-16] MEDS ORDERED: [UNRECOGNIZED DRUG - OTHER] IV SCH ×2 (17:00)
[2019-07-16] MEDS ORDERED: SMOF TPN IV SCH ×2 (17:00)
[2019-07-16] MEDS: FILTER, DISP 1.2 MICRON FOR TPN/PVN IV PRN (17:06)
[2019-07-16] MEDS ORDERED: WARFARIN 7.5 MG TABLET PO-COUM ONE (18:00)
[2019-07-16 20:47] VITALS: BP 114/75
[2019-07-16] MEDS: COBICISTAT HOMEMEDPO SCH (22:55)
[2019-07-16] MEDS: EMTRICITABINE HOMEMEDPO SCH (22:55)
[2019-07-16] MEDS: ELVITEGRAVIR HOMEMEDPO SCH (22:55)
[2019-07-16] MEDS: [UNRECOGNIZED DRUG - OTHER] HOMEMEDPO SCH (22:55)
[2019-07-16] MEDS: TENOFOVIR DISOPROXIL FUMARATE HOMEMEDPO SCH (22:55)
[2019-07-17] MEDS: MELATONIN 5 MG TABLET PO PRN (00:49)
[2019-07-17 01:02] VITALS: BP 103/71
[2019-07-17] MEDS ORDERED: HYDROmorphone 1 MG/ML, 1ML INJ ONE ×3 (05:00→17:42)
[2019-07-17] MEDS: HYDROmorphone 1 MG/ML, 1ML VIAL IVPush PRN ×3 (05:31→17:46)
[2019-07-17] MEDS: ACETAMINOPHEN 325 MG TABLET PO SCH ×3 (05:32→17:51)
[2019-07-17 05:42] LABS: CHLORIDE 109 mmol/L (98-107)
[2019-07-17 05:47] LABS: ANION GAP 4 mmol/L (5-15); CALCIUM 8.1 mg/dL (8.5-10.1); CREATININE 0.42 mg/dL (0.7-1.3)
[2019-07-17 06:27] LABS: INTERNATIONAL NORMALIZED RATIO 1.58 (0.93-1.1); PROTHROMBIN TIME 16.3 Seconds (9.6-11.5)
[2019-07-17] MEDS: INSULIN REGULAR LOW DOSE QDAY SQ-INSULIN SCH (07:46)
[2019-07-17] MEDS: OMEPRAZOLE 20 MG CAPSULE.DR PO SCH (09:11)
[2019-07-17] MEDS: ENOXAPARIN 60 MG/0.6 ML SQ SCH ×2 (09:11→22:14)
[2019-07-17] MEDS: NEUTRA PHOS K 250 MG TABLET PO SCH ×3 (09:11→21:08)
[2019-07-17] MEDS: LACTOBACILLUS CHEW TABLET PO SCH ×3 (09:11→21:08)
[2019-07-17 09:24] VITALS: BP 135/86
[2019-07-17 12:28] VITALS: BP 145/94
[2019-07-17] MEDS: WARFARIN HIGH DOSE PROTOCOL XX SCH (12:31)
[2019-07-17] MEDS: ONDANSETRON ODT 4 MG PO PRN ×2 (12:37→17:46)
[2019-07-17] MEDS: OXYcodone IR 5MG TABLET PO PRN ×2 (12:37→21:12)
[2019-07-17] MEDS: ALBUTEROL SULFATE 2.5 MG/3 ML NPPB PRN (14:15)
[2019-07-17] MEDS: SIMETHICONE 80 MG CHEW TAB PO PRN (16:05)
[2019-07-17 16:46] LABS: CLOSTRIDIUM DIFFICILE ANTIGEN NEGATIVE; CLOSTRIDIUM DIFFICILE TOXIN NEGATIVE (Negative)
[2019-07-17] MEDS ORDERED: FAT EMUL IV SCH (17:00)
[2019-07-17] MEDS ORDERED: SMOF TPN IV SCH (17:00)
[2019-07-17] MEDS ORDERED: DEXTROSE 70% IV SCH (17:00)
[2019-07-17] MEDS ORDERED: AMINO ACID 10% IV SCH (17:00)
[2019-07-17] MEDS ORDERED: [UNRECOGNIZED DRUG - OTHER] IV SCH (17:00)
[2019-07-17] MEDS: FILTER, DISP 1.2 MICRON FOR TPN/PVN IV PRN (17:49)
[2019-07-17] MEDS ORDERED: WARFARIN 10 MG TABLET PO-COUM ONE (18:00)
[2019-07-17 19:27] VITALS: BP 116/78
[2019-07-17] MEDS: TENOFOVIR DISOPROXIL FUMARATE HOMEMEDPO SCH (21:00)
[2019-07-17] MEDS: COBICISTAT HOMEMEDPO SCH (21:00)
[2019-07-17] MEDS: EMTRICITABINE HOMEMEDPO SCH (21:00)
[2019-07-17] MEDS: ELVITEGRAVIR HOMEMEDPO SCH (21:00)
[2019-07-17] MEDS: [UNRECOGNIZED DRUG - OTHER] HOMEMEDPO SCH (21:00)
[2019-07-17] MEDS: ONDANSETRON 2MG/ML, 2ML IVPush PRN (22:23)
[2019-07-18] MEDS ORDERED: HYDROmorphone 1 MG/ML, 1ML INJ ONE ×4 (00:16→19:34)
[2019-07-18] MEDS: ACETAMINOPHEN 325 MG TABLET PO SCH ×4 (00:18→17:56)
[2019-07-18] MEDS: HYDROmorphone 1 MG/ML, 1ML VIAL IVPush PRN ×4 (00:18→19:41)
[2019-07-18 00:27] VITALS: BP 121/81
[2019-07-18 06:54] LABS: BASOPHILS # (AUTO) 0.05 x10^3/uL (0-0.1); BASOPHILS % (AUTO) 1 % (0-1); EOSINOPHILS # (AUTO) 0.04 x10^3/uL (0-0.4); EOSINOPHILS % (AUTO) 1 % (1-7); LYMPHOCYTES # (AUTO) 1.23 x10^3/uL (1-3.4); LYMPHOCYTES % (AUTO) 13 % (22-44); MD NO; MEAN CORPUSCULAR HGB CONC 32.6 g/dL (33.2-36.2); MEAN CORPUSCULAR VOLUME 107.4 fL (81-97); MEAN PLATELET VOLUME 7.6 fL (7.4-10.4); MONOCYTES # (AUTO) 0.59 x10^3/uL (0.2-0.8); MONOCYTES % (AUTO) 6 % (2-9); NEUTROPHILS # (AUTO) 7.73 x10^3/uL (1.8-6.8); NEUTROPHILS % (AUTO) 80 % (42-75); PLATELET COUNT 428 x10^3/uL (130-400); RED BLOOD COUNT 2.52 x10^6/uL (4.38-5.82); RED CELL DISTRIBUTION WIDTH 14.6 % (9.4-14.8)
[2019-07-18 07:01] LABS: ANION GAP 6 mmol/L (5-15); CHLORIDE 106 mmol/L (98-107)
[2019-07-18 07:02] LABS: CREATININE 0.34 mg/dL (0.7-1.3)
[2019-07-18 07:32] VITALS: BP 117/84
[2019-07-18] MEDS: INSULIN REGULAR LOW DOSE QDAY SQ-INSULIN SCH (07:57)
[2019-07-18 08:31] LABS: INTERNATIONAL NORMALIZED RATIO 1.72 (0.93-1.1); PROTHROMBIN TIME 17.7 Seconds (9.6-11.5)
[2019-07-18] MEDS: ENOXAPARIN 60 MG/0.6 ML SQ SCH ×2 (09:50→21:42)
[2019-07-18] MEDS: NEUTRA PHOS K 250 MG TABLET PO SCH ×3 (09:50→19:51)
[2019-07-18] MEDS: LACTOBACILLUS CHEW TABLET PO SCH ×3 (09:50→19:51)
[2019-07-18] MEDS: OXYcodone IR 5MG TABLET PO PRN ×3 (09:50→17:56)
[2019-07-18] MEDS: ONDANSETRON 2MG/ML, 2ML IVPush PRN ×2 (10:01→18:03)
[2019-07-18] MEDS: WARFARIN HIGH DOSE PROTOCOL XX SCH (12:00)
[2019-07-18 14:23] VITALS: BP 111/77
[2019-07-18] MEDS ORDERED: [UNRECOGNIZED DRUG - OTHER] IV SCH (17:00)
[2019-07-18] MEDS ORDERED: FAT EMUL IV SCH (17:00)
[2019-07-18] MEDS ORDERED: FILTER, DISP 1.2 MICRON FOR TPN/PVN IV PRN (17:00)
[2019-07-18] MEDS ORDERED: AMINO ACID 10% IV SCH (17:00)
[2019-07-18] MEDS ORDERED: DEXTROSE 70% IV SCH (17:00)
[2019-07-18] MEDS ORDERED: SMOF TPN IV SCH (17:00)
[2019-07-18] MEDS ORDERED: WARFARIN 10 MG TABLET PO-COUM ONE (18:00)
[2019-07-18 19:28] VITALS: BP 103/68
[2019-07-18] MEDS: EMTRICITABINE HOMEMEDPO SCH (19:51)
[2019-07-18] MEDS: ELVITEGRAVIR HOMEMEDPO SCH (19:51)
[2019-07-18] MEDS: [UNRECOGNIZED DRUG - OTHER] HOMEMEDPO SCH (19:51)
[2019-07-18] MEDS: TENOFOVIR DISOPROXIL FUMARATE HOMEMEDPO SCH (19:51)
[2019-07-18] MEDS: MELATONIN 5 MG TABLET PO PRN (19:51)
[2019-07-18] MEDS: COBICISTAT HOMEMEDPO SCH (19:51)
[2019-07-19] MEDS: ACETAMINOPHEN 325 MG TABLET PO SCH ×5 (00:21→23:11)
[2019-07-19 03:08] VITALS: BP 122/85
[2019-07-19] MEDS ORDERED: HYDROmorphone 1 MG/ML, 1ML INJ ONE ×2 (03:56→11:28)
[2019-07-19] MEDS: HYDROmorphone 1 MG/ML, 1ML VIAL IVPush PRN ×2 (04:06→11:32)
[2019-07-19] MEDS: ONDANSETRON 2MG/ML, 2ML IVPush PRN ×3 (04:09→21:43)
[2019-07-19 05:24] LABS: INTERNATIONAL NORMALIZED RATIO 2.64 (0.93-1.1); PROTHROMBIN TIME 26.7 Seconds (9.6-11.5)
[2019-07-19 05:30] LABS: ANION GAP 6 mmol/L (5-15); CHLORIDE 106 mmol/L (98-107)
[2019-07-19 05:32] LABS: CALCIUM 7.8 mg/dL (8.5-10.1); CREATININE 0.36 mg/dL (0.7-1.3)
[2019-07-19 07:30] VITALS: BP 112/78
[2019-07-19] MEDS: INSULIN REGULAR LOW DOSE QDAY SQ-INSULIN SCH (08:00)
[2019-07-19] MEDS: NEUTRA PHOS K 250 MG TABLET PO SCH ×3 (08:17→21:43)
[2019-07-19] MEDS: LACTOBACILLUS CHEW TABLET PO SCH ×3 (08:17→21:44)
[2019-07-19] MEDS: OXYcodone IR 5MG TABLET PO PRN ×3 (08:32→21:44)
[2019-07-19] MEDS: WARFARIN HIGH DOSE PROTOCOL XX SCH (12:00)
[2019-07-19 13:06] VITALS: BP 116/81
[2019-07-19] MEDS: MULTIVITAMINS/MINERALS TABLET PO SCH (13:14)
[2019-07-19] MEDS: PANTOPROZOLE 40MG TABLET PO SCH ×2 (13:14→21:43)
[2019-07-19] MEDS: OCTREOTIDE 50 MCG/ML, 1ML (0.05MG/ML) SQ SCH ×3 (13:18→22:30)
[2019-07-19] MEDS ORDERED: FILTER, DISP 1.2 MICRON FOR TPN/PVN IV PRN (17:00)
[2019-07-19] MEDS: FAT EMUL IV SCH (17:17)
[2019-07-19] MEDS: DEXTROSE 70% IV SCH (17:17)
[2019-07-19] MEDS: AMINO ACID 10% IV SCH (17:17)
[2019-07-19] MEDS: SMOF TPN IV SCH (17:17)
[2019-07-19] MEDS: [UNRECOGNIZED DRUG - OTHER] IV SCH (17:17)
[2019-07-19] MEDS ORDERED: WARFARIN 5 MG TABLET PO-COUM ONE (18:00)
[2019-07-19 19:12] VITALS: BP 111/76
[2019-07-19] MEDS: MELATONIN 5 MG TABLET PO PRN (21:43)
[2019-07-19] MEDS: TENOFOVIR DISOPROXIL FUMARATE HOMEMEDPO SCH (21:44)
[2019-07-19] MEDS: COBICISTAT HOMEMEDPO SCH (21:44)
[2019-07-19] MEDS: ELVITEGRAVIR HOMEMEDPO SCH (21:44)
[2019-07-19] MEDS: EMTRICITABINE HOMEMEDPO SCH (21:44)
[2019-07-19] MEDS: [UNRECOGNIZED DRUG - OTHER] HOMEMEDPO SCH (21:44)
[2019-07-20] MEDS: ACETAMINOPHEN 325 MG TABLET PO SCH ×4 (06:09→23:37)
[2019-07-20] MEDS: OXYcodone IR 5MG TABLET PO PRN ×3 (06:09→21:39)
[2019-07-20] MEDS: ONDANSETRON 2MG/ML, 2ML IVPush PRN (06:13)
[2019-07-20] MEDS: SIMETHICONE 80 MG CHEW TAB PO PRN (06:17)
[2019-07-20 06:25] LABS: INTERNATIONAL NORMALIZED RATIO 2.67 (0.93-1.1)
[2019-07-20] MEDS: INSULIN REGULAR LOW DOSE QDAY SQ-INSULIN SCH (07:34)
[2019-07-20 08:04] VITALS: BP 97/64
[2019-07-20] MEDS: NEUTRA PHOS K 250 MG TABLET PO SCH ×3 (08:24→19:47)
[2019-07-20] MEDS: OCTREOTIDE 50 MCG/ML, 1ML (0.05MG/ML) SQ SCH ×4 (08:24→23:37)
[2019-07-20] MEDS: PANTOPROZOLE 40MG TABLET PO SCH ×2 (08:24→17:51)
[2019-07-20] MEDS: MULTIVITAMINS/MINERALS TABLET PO SCH (08:24)
[2019-07-20] MEDS: LACTOBACILLUS CHEW TABLET PO SCH ×3 (08:24→19:47)
[2019-07-20] MEDS: WARFARIN HIGH DOSE PROTOCOL XX SCH (12:00)
[2019-07-20 15:00] VITALS: BP 109/78
[2019-07-20] MEDS: DEXTROSE 70% IV SCH (17:00)
[2019-07-20] MEDS: FAT EMUL IV SCH (17:00)
[2019-07-20] MEDS: SMOF TPN IV SCH (17:00)
[2019-07-20] MEDS: [UNRECOGNIZED DRUG - OTHER] IV SCH (17:00)
[2019-07-20] MEDS: AMINO ACID 10% IV SCH (17:00)
[2019-07-20] MEDS ORDERED: WARFARIN 5 MG TABLET PO-COUM ONE (18:00)
[2019-07-20 19:40] VITALS: BP 111/77
[2019-07-20] MEDS: ELVITEGRAVIR HOMEMEDPO SCH (19:47)
[2019-07-20] MEDS: MELATONIN 5 MG TABLET PO PRN (19:47)
[2019-07-20] MEDS: TENOFOVIR DISOPROXIL FUMARATE HOMEMEDPO SCH (19:47)
[2019-07-20] MEDS: [UNRECOGNIZED DRUG - OTHER] HOMEMEDPO SCH (19:47)
[2019-07-20] MEDS: COBICISTAT HOMEMEDPO SCH (19:47)
[2019-07-20] MEDS: EMTRICITABINE HOMEMEDPO SCH (19:47)
[2019-07-21 01:44] VITALS: BP 102/69
[2019-07-21] MEDS: ACETAMINOPHEN 325 MG TABLET PO SCH ×2 (06:30→12:00)
[2019-07-21] MEDS: OXYcodone IR 5MG TABLET PO PRN (06:31)
[2019-07-21 07:01] LABS: INTERNATIONAL NORMALIZED RATIO 2.63 (0.93-1.1); PROTHROMBIN TIME 26.6 Seconds (9.6-11.5)
[2019-07-21] MEDS: INSULIN REGULAR LOW DOSE QDAY SQ-INSULIN SCH (08:00)
[2019-07-21] MEDS: NEUTRA PHOS K 250 MG TABLET PO SCH (08:25)
[2019-07-21] MEDS: PANTOPROZOLE 40MG TABLET PO SCH (08:25)
[2019-07-21] MEDS: MULTIVITAMINS/MINERALS TABLET PO SCH (08:25)
[2019-07-21] MEDS: LACTOBACILLUS CHEW TABLET PO SCH (08:25)
[2019-07-21] MEDS: OCTREOTIDE 50 MCG/ML, 1ML (0.05MG/ML) SQ SCH ×2 (08:25→14:17)
[2019-07-21 09:00] VITALS: BP 109/75
[2019-07-21] MEDS: WARFARIN HIGH DOSE PROTOCOL XX SCH (12:00)
[2019-07-21] MEDS ORDERED: MULT-484 PO (12:42)
[2019-07-21] MEDS ORDERED: ACID1TAB7 PO (12:42)
[2019-07-21] MEDS ORDERED: WARF-36 PO (12:42)
[2019-07-21] MEDS ORDERED: [UNRECOGNIZED DRUG - CODE] SQ (12:42)
[2019-07-21] MEDS ORDERED: PANT40TA5 PO (12:42)
== END 2019-07-21 14:30 | disposition home or self-care (01) | DRG 720 ==
LOC: ED 10:29 → EDIP 13:27 → 4EST 14:55 → DCLOUNGE 07-21 14:23
PROVIDERS: ADMIT Internal Medicine; ATTEND Internal Medicine
PROC: 0W9G3ZZ Drainage of Peritoneal Cavity, Percutaneous Approach (ICD-10-PCS; principal; 2019-07-04)
PROC: 02HV33Z Insertion of Infusion Device into Superior Vena Cava, Percutaneous Approach (ICD-10-PCS; 2019-07-09)
PROC: B5181ZA Fluoroscopy of Superior Vena Cava using Low Osmolar Contrast, Guidance (ICD-10-PCS; 2019-07-09)
PROC: B548ZZA Ultrasonography of Superior Vena Cava, Guidance (ICD-10-PCS; 2019-07-09)
DX: A41.9 Sepsis, unspecified organism (principal); E43 Unspecified severe protein-calorie malnutrition; K65.1 Peritoneal abscess; K85.20 Alcohol induced acute pancreatitis without necrosis or infection; F10.231 Alcohol dependence with withdrawal delirium; D68.59 Other primary thrombophilia; E83.39 Other disorders of phosphorus metabolism; E83.42 Hypomagnesemia; K85.30 Drug induced acute pancreatitis without necrosis or infection; K86.0 Alcohol-induced chronic pancreatitis; E83.51 Hypocalcemia; D53.9 Nutritional anemia, unspecified; Z83.3 Family history of diabetes mellitus; Z82.49 Family history of ischemic heart disease and other diseases of the circulatory system; Z68.1 Body mass index [BMI] 19.9 or less, adult; E87.1 Hypo-osmolality and hyponatremia; E87.6 Hypokalemia; Y90.9 Presence of alcohol in blood, level not specified; F17.210 Nicotine dependence, cigarettes, uncomplicated; I10 Essential (primary) hypertension; K56.7 Ileus, unspecified; K61.2 Anorectal abscess; K62.89 Other specified diseases of anus and rectum; K86.2 Cyst of pancreas; K86.3 Pseudocyst of pancreas; R18.8 Other ascites; R56.9 Unspecified convulsions; Z53.20 Procedure and treatment not carried out because of patient's decision for unspecified reasons; K52.9 Noninfective gastroenteritis and colitis, unspecified
CPT/HCPCS: 36415; 36573; 49083; 71045; 71275; 74018; 74176; 74177; 74181; 76700; 80048; 80053; 80069; 81003; 82042; 82150; 82272; 82330; 82607; 82945; 82962; 83540; 83550; 83605; 83615; 83690; 83735; 83986; 84100; 84132; 84134; 84157; 84302; 84443; 84478; 84999; 85025; 85610; 85651; 86140; 86361; 87015; 87040; 87046; 87070; 87075; 87116; 87205; 87206; 87324; 87328; 87329; 87536; 88112; 88305; 89051; 89055; 93005; 94640; 96361; 96374; 96375; 99285; G0378; J0610; J1170; J1650; J2354; J2405; J2543; J2550; J3370; J3411; J3475; J3480; J7042; J7613; Q0162; Q9967; C1751; C9113; J2270; J3420; J3490; J7030; J7040; J7050

== ENCOUNTER 2019-08-20 17:58 | Inpatient (IN) | payer MEDICAID ==
[~2019-08-20] VITALS: Ht 188 cm; Wt 61.9 kg
[~2019-08-20 17:58] MED LIST: ACID1TAB7 PO; ELVI1TAB2 PO; MULT-484 PO; PANT40TA5 PO; WARF-36 PO; [UNRECOGNIZED DRUG - CODE] SQ
[2019-08-20] MEDS ORDERED: MORPHINE SULFATE 4 MG/ML, 1ML ONE ×2 (18:45→20:20)
[2019-08-20] MEDS ORDERED: ONDANSETRON 2MG/ML, 2ML ONE (18:45)
[2019-08-20] MEDS: MORPHINE SULFATE 4 MG/ML, 1ML IVPush PRN ×2 (18:48→20:25)
--- NOTE | 2019-08-20 18:50 | NUR ---
PT FROM TRIAGE TO TRAUMA 3 VIA WHEELCHAIR. PT PRESENTS SITTING UPRIGHT IN WHEELCHAIR AND IN OBVIOUS DISCOMFORT. PT MOANING AND BREATHING WITH RATE MID 20S. PT ASSISTED FROM WHEELCHAIR TO GURNEY WITH STAFF, DRESSED IN GOWN, AND ATTACHED TO MONITOR. PT AAO X 4, SOB NOTED WITH CONVERSATION (3-4 WORDS AT A TIME). PIV ESTABLISHED X 2. ROOM AIR, HR 140S-160S, SINUS TACHY ON MONITOR. PT STATES RECENT ADMISSION IN JUNE FOR ACUTE PANCREATITIS AND DISCHARGED HOME ON 07/21. PT STATES HE HAS BEEN FOLLOWING STRICT DIET REQUIREMENTS AND NOTED INITIALLY ABDOMINAL SWELLING DECREASED IN SIZE. PER PT, APPROX. 4 DAYS AGO ABDOMINAL SWELLING INCREASED IN SIZE AND PAIN INCREASED. PER PT 2 DAYS AGO PAIN INCREASED AND BECAME UNBEARABLE TODAY. PT STATES HX HIV AND TAKES MEDICATIONS, PREVIOUS HEAVY DRINKER (QUIT 06/20). MD AT BEDSIDE FOR EXAM, NEW ORDERS RECEIVED AND IMPLEMENTED. LABS DRAWN. REPORT TO JOANIE STOUT. CARE TRANSFERRED.
--- NOTE | 2019-08-20 18:52 | NUR ---
REPORT RECEIVED FROM ROSHNI AND JOANIE ANDREW'S TO ASSUME CARE OF PT. PT. WAS MEDICATED PER MAR BY JOANIE BARAKAT. PT. WITH EMESIS X 1 AT THIS TIME.
--- NOTE | 2019-08-20 18:59 | NUR ---
CHEST X-RAY DONE, LAB AT BS COMPLETED 2ND SET OF BLOOD CULURES. PT. REPORTS NAUSEA HAS CEASED AT THIS TIME. FAMILY AT BS FOR SUPPORT. ALL MONITORS WERE IN PLACE UPON ASSUMING CARE. ALL SAFETY MEASURES OBSERVED.
[2019-08-20] MEDS ORDERED: SODIUM CHLORIDE FLUSH 10ML SYR IVF ONE (19:00)
[2019-08-20 19:11] LABS: BASOPHILS # (AUTO) 0.05 x10^3/uL (0-0.1); BASOPHILS % (AUTO) 1 % (0-1); EOSINOPHILS # (AUTO) 0.11 x10^3/uL (0-0.4); EOSINOPHILS % (AUTO) 1 % (1-7); LYMPHOCYTES # (AUTO) 1.81 x10^3/uL (1-3.4); LYMPHOCYTES % (AUTO) 22 % (22-44); MD NO; MEAN CORPUSCULAR HEMOGLOBIN 30.3 pg (27.5-34.5); MEAN CORPUSCULAR HGB CONC 31.9 g/dL (33.2-36.2); MEAN CORPUSCULAR VOLUME 94.8 fL (81-97); MEAN PLATELET VOLUME 8.4 fL (7.4-10.4); MONOCYTES % (AUTO) 7 % (2-9); NEUTROPHILS # (AUTO) 5.72 x10^3/uL (1.8-6.8); NEUTROPHILS % (AUTO) 69 % (42-75); PLATELET COUNT 608 x10^3/uL (130-400); RED BLOOD COUNT 4.14 x10^6/uL (4.38-5.82); RED CELL DISTRIBUTION WIDTH 15.2 % (9.4-14.8)
[2019-08-20 19:25] LABS: ALANINE AMINOTRANSFERASE 10 U/L (12-78); ALBUMIN 2.2 g/dL (3.4-5.0); ANION GAP 7 mmol/L (5-15); CALCIUM 8.9 mg/dL (8.5-10.1); CHLORIDE 102 mmol/L (98-107)
[2019-08-20 19:27] LABS: ALKALINE PHOSPHATASE 55 U/L (45-117); BILIRUBIN,TOTAL 0.4 mg/dL (0.2-1.0); TOTAL PROTEIN 7.7 g/dL (6.4-8.2)
[2019-08-20] MEDS ORDERED: ONDANSETRON 2MG/ML, 2ML IVPush ONE (19:30)
[2019-08-20 19:46] LABS: INTERNATIONAL NORMALIZED RATIO 1.1 (0.93-1.1); PROTHROMBIN TIME 11.7 Seconds (9.6-11.5)
[2019-08-20] MEDS ORDERED: LIDOCAINE 1%, 10ML INFIL ONE (20:00)
[2019-08-20] MEDS ORDERED: LIDOCAINE-MPF 1%, 5ML ONE (20:14)
--- NOTE | 2019-08-20 20:25 | NUR ---
CRISTELA NAIR; MEDICATED WITH PAIN MED PER DR STUART VARELA
--- NOTE | 2019-08-20 21:34 | NUR ---
CT DELAY, PT IS GETTING FLUID DRAIN FROM ABD.
--- NOTE | 2019-08-20 21:43 | NUR ---
Oziel rn: Md at bedside for paracentesis at this time. Aware of vs trend. Pt denies any distress at this time. Awaiting adm orders.
[2019-08-20] MEDS ORDERED: SODIUM CHLORIDE 0.9%, 500ML IVBOLUS ONE (22:30)
[2019-08-20] MEDS ORDERED: OMNIPAQUE 350 MG/ML, 100ML BOTTLE ONE (22:30)
--- NOTE | 2019-08-20 22:33 | NUR ---
PT READY FOR CT. CT AWARE.
--- NOTE | 2019-08-20 22:36 | NUR ---
PT TO CT AT THIS TIME.
[2019-08-21 00:48] VITALS: BP 105/71
[2019-08-21] MEDS ORDERED: MORPHINE SULFATE 4 MG/ML, 1ML IVPush ONE (01:30)
[2019-08-21] MEDS ORDERED: PROMETHAZINE 25 MG/ML, 1ML IM PRN (02:30)
[2019-08-21] MEDS ORDERED: LABETALOL 5MG/ML, 20ML IVPush PRN (02:30)
[2019-08-21] MEDS: POTASSIUM CHLORIDE 20 MEQ, MAGNESIUM SULFATE 2 GM, THIAMINE 200 MG, MVI ADULT 10 ML, FO... IV SCH ×2 (03:04→14:37)
[2019-08-21] MEDS: morphine SULFATE 10 MG/ML, 1ML IVPush PRN ×5 (05:01→20:38)
[2019-08-21 05:57] LABS: ALBUMIN 1.6 g/dL (3.4-5.0); ANION GAP 7 mmol/L (5-15); CALCIUM 7.8 mg/dL (8.5-10.1); CHLORIDE 102 mmol/L (98-107)
[2019-08-21 06:04] LABS: ALKALINE PHOSPHATASE 41 U/L (45-117); BILIRUBIN,TOTAL 0.7 mg/dL (0.2-1.0); CREATININE 0.44 mg/dL (0.7-1.3); TOTAL PROTEIN 5.6 g/dL (6.4-8.2)
[2019-08-21 06:06] LABS: ALANINE AMINOTRANSFERASE < 6 U/L (12-78)
[2019-08-21 07:07] VITALS: BP 98/65
[2019-08-21] MEDS: PANTOPROZOLE 40MG TABLET PO SCH ×2 (08:53→17:03)
[2019-08-21] MEDS: CEFTRIAXONE PMX 1GM/50ML 50 ML IV SCH (10:25)
[2019-08-21] MEDS: OCTREOTIDE 50 MCG/ML, 1ML (0.05MG/ML) SQ SCH ×3 (10:26→20:40)
[2019-08-21 13:01] VITALS: BP 104/71
[2019-08-21 13:13] LABS: TROPONIN I < 0.015 ng/mL (0.000-0.045)
[2019-08-21] MEDS ORDERED: Enoxaparin 1 mg/kg protocol SQ SCH (15:00)
[2019-08-21] MEDS: ENOXAPARIN 60 MG/0.6 ML SQ SCH (15:49)
[2019-08-21] MEDS: ONDANSETRON 2MG/ML, 2ML IVPush PRN (20:37)
[2019-08-21] MEDS: TENOFOVIR DISOPROXIL FUMARATE HOMEMEDPO SCH (20:40)
[2019-08-21] MEDS: ELVITEGRAVIR HOMEMEDPO SCH (20:40)
[2019-08-21] MEDS: EMTRICITABINE HOMEMEDPO SCH (20:40)
[2019-08-21] MEDS: COBICISTAT HOMEMEDPO SCH (20:40)
[2019-08-21] MEDS: [UNRECOGNIZED DRUG - OTHER] HOMEMEDPO SCH (20:40)
[2019-08-21 20:59] VITALS: BP 98/66
[2019-08-22 01:55] VITALS: BP 102/69
[2019-08-22] MEDS ORDERED: POTASSIUM CHLORIDE 20 MEQ, MAGNESIUM SULFATE 2 GM, THIAMINE 200 MG, MVI ADULT 10 ML, FO... IV SCH (02:19)
[2019-08-22] MEDS: ENOXAPARIN 60 MG/0.6 ML SQ SCH ×3 (02:57→14:58)
[2019-08-22] MEDS: ONDANSETRON 2MG/ML, 2ML IVPush PRN ×4 (02:57→21:17)
[2019-08-22] MEDS: morphine SULFATE 10 MG/ML, 1ML IVPush PRN ×6 (02:58→21:17)
[2019-08-22 06:34] VITALS: BP 110/72
[2019-08-22] MEDS: PANTOPROZOLE 40MG TABLET PO SCH ×2 (07:37→16:54)
[2019-08-22] MEDS ORDERED: TPN PER PHARMACY MC PRN (08:30)
[2019-08-22 09:00] LABS: BASOPHILS # (AUTO) 0.02 x10^3/uL (0-0.1); BASOPHILS % (AUTO) 0 % (0-1); EOSINOPHILS # (AUTO) 0.12 x10^3/uL (0-0.4); EOSINOPHILS % (AUTO) 2 % (1-7); LYMPHOCYTES # (AUTO) 1.37 x10^3/uL (1-3.4); LYMPHOCYTES % (AUTO) 23 % (22-44); MD NO; MEAN CORPUSCULAR HEMOGLOBIN 30.2 pg (27.5-34.5); MEAN CORPUSCULAR HGB CONC 31.7 g/dL (33.2-36.2); MEAN CORPUSCULAR VOLUME 95.2 fL (81-97); MEAN PLATELET VOLUME 8.1 fL (7.4-10.4); MONOCYTES # (AUTO) 0.35 x10^3/uL (0.2-0.8); MONOCYTES % (AUTO) 6 % (2-9); NEUTROPHILS % (AUTO) 69 % (42-75); PLATELET COUNT 554 x10^3/uL (130-400); RED BLOOD COUNT 3.85 x10^6/uL (4.38-5.82); RED CELL DISTRIBUTION WIDTH 15.3 % (9.4-14.8)
[2019-08-22] MEDS: OCTREOTIDE 50 MCG/ML, 1ML (0.05MG/ML) SQ SCH ×4 (09:00→21:00)
[2019-08-22 09:09] LABS: ANION GAP 7 mmol/L (5-15); CALCIUM 7.8 mg/dL (8.5-10.1); CHLORIDE 104 mmol/L (98-107); CREATININE 0.45 mg/dL (0.7-1.3)
[2019-08-22 09:17] LABS: PREALBUMIN 8.8 mg/dL (20.0-40.0)
[2019-08-22] MEDS: CEFTRIAXONE PMX 1GM/50ML 50 ML IV SCH (09:41)
[2019-08-22 13:42] VITALS: BP 118/86
[2019-08-22] MEDS ORDERED: DEXTROSE 70% IV SCH ×2 (17:00)
[2019-08-22] MEDS ORDERED: SMOF TPN IV SCH ×2 (17:00)
[2019-08-22] MEDS ORDERED: AMINO ACID 10% IV SCH ×2 (17:00)
[2019-08-22] MEDS ORDERED: DEXTROSE 50%, 50ML SYRINGE IVPush PRN (17:00)
[2019-08-22] MEDS ORDERED: FAT EMUL IV SCH ×2 (17:00)
[2019-08-22] MEDS ORDERED: [UNRECOGNIZED DRUG - OTHER] IV SCH ×2 (17:00)
[2019-08-22] MEDS ORDERED: DEXTROSE 10% 500 ML IV PRN (17:00)
[2019-08-22] MEDS ORDERED: D5%-0.9% NACL 1,000 ML IV SCH (18:00)
[2019-08-22] MEDS: [UNRECOGNIZED DRUG - OTHER] HOMEMEDPO SCH (19:56)
[2019-08-22] MEDS: ELVITEGRAVIR HOMEMEDPO SCH (19:56)
[2019-08-22] MEDS: COBICISTAT HOMEMEDPO SCH (19:56)
[2019-08-22] MEDS: EMTRICITABINE HOMEMEDPO SCH (19:56)
[2019-08-22] MEDS: TENOFOVIR DISOPROXIL FUMARATE HOMEMEDPO SCH (19:56)
[2019-08-22] MEDS: INSULIN REGULAR LOW DOSE Q6H X 48HRS SQ-INSULIN SCH (19:57)
[2019-08-22 20:44] VITALS: BP 116/88
[2019-08-23 02:06] VITALS: BP 117/86
[2019-08-23] MEDS: morphine SULFATE 10 MG/ML, 1ML IVPush PRN ×5 (02:46→21:39)
[2019-08-23] MEDS: INSULIN REGULAR LOW DOSE Q6H X 48HRS SQ-INSULIN SCH ×4 (03:00→21:08)
[2019-08-23] MEDS: ENOXAPARIN 60 MG/0.6 ML SQ SCH ×2 (03:30→17:42)
[2019-08-23 05:48] LABS: CALCIUM 7.5 mg/dL (8.5-10.1); CHLORIDE 101 mmol/L (98-107)
[2019-08-23 05:53] LABS: ALBUMIN 1.3 g/dL (3.4-5.0); ALKALINE PHOSPHATASE 40 U/L (45-117); ANION GAP 5 mmol/L (5-15); BILIRUBIN,TOTAL 0.3 mg/dL (0.2-1.0); CREATININE 0.46 mg/dL (0.7-1.3); TOTAL PROTEIN 5.1 g/dL (6.4-8.2)
[2019-08-23 05:55] LABS: ALANINE AMINOTRANSFERASE < 6 U/L (12-78)
[2019-08-23 06:50] VITALS: BP 113/77
[2019-08-23] MEDS ORDERED: CALCIUM GLUCONATE 4.6 MEQ in SODIUM CHLORIDE 0.9% 50 ML IV ONE (07:30)
[2019-08-23] MEDS: OCTREOTIDE 50 MCG/ML, 1ML (0.05MG/ML) SQ SCH ×3 (09:00→21:00)
[2019-08-23] MEDS: PANTOPROZOLE 40MG TABLET PO SCH ×2 (09:16→17:42)
[2019-08-23 09:27] LABS: INTERNATIONAL NORMALIZED RATIO 1.03 (0.93-1.1); PROTHROMBIN TIME 10.9 Seconds (9.6-11.5)
[2019-08-23] MEDS: CEFTRIAXONE PMX 1GM/50ML 50 ML IV SCH (10:15)
[2019-08-23] MEDS: WARFARIN HIGH DOSE PROTOCOL XX SCH (12:00)
[2019-08-23] MEDS: ONDANSETRON 2MG/ML, 2ML IVPush PRN (13:26)
[2019-08-23 13:37] VITALS: BP 113/82
[2019-08-23] MEDS: MAGNESIUM HYDROXIDE 8%, 30ML UDC PO SCH ×2 (14:19→21:00)
[2019-08-23] MEDS ORDERED: FAT EMUL IV SCH (17:00)
[2019-08-23] MEDS ORDERED: DEXTROSE 70% IV SCH (17:00)
[2019-08-23] MEDS ORDERED: SMOF TPN IV SCH (17:00)
[2019-08-23] MEDS ORDERED: [UNRECOGNIZED DRUG - OTHER] IV SCH (17:00)
[2019-08-23] MEDS ORDERED: AMINO ACID 10% IV SCH (17:00)
[2019-08-23] MEDS: FILTER, DISP 1.2 MICRON FOR TPN/PVN IV PRN (17:43)
[2019-08-23] MEDS ORDERED: WARFARIN 10 MG TABLET PO-COUM SCH (18:00)
[2019-08-23 19:22] VITALS: BP 105/73
[2019-08-23] MEDS: ELVITEGRAVIR HOMEMEDPO SCH (21:00)
[2019-08-23] MEDS: [UNRECOGNIZED DRUG - OTHER] HOMEMEDPO SCH (21:00)
[2019-08-23] MEDS: EMTRICITABINE HOMEMEDPO SCH (21:00)
[2019-08-23] MEDS: COBICISTAT HOMEMEDPO SCH (21:00)
[2019-08-23] MEDS: TENOFOVIR DISOPROXIL FUMARATE HOMEMEDPO SCH (21:00)
[2019-08-24 01:56] VITALS: BP 127/83
[2019-08-24] MEDS: morphine SULFATE 10 MG/ML, 1ML IVPush PRN ×5 (02:01→20:12)
[2019-08-24] MEDS: INSULIN REGULAR LOW DOSE Q6H X 48HRS SQ-INSULIN SCH ×3 (02:06→15:17)
[2019-08-24] MEDS: ENOXAPARIN 60 MG/0.6 ML SQ SCH ×2 (05:39→20:11)
[2019-08-24 06:04] LABS: ALBUMIN 1.3 g/dL (3.4-5.0); ANION GAP 2 mmol/L (5-15); CALCIUM 7.6 mg/dL (8.5-10.1); CHLORIDE 100 mmol/L (98-107); CREATININE 0.38 mg/dL (0.7-1.3)
[2019-08-24 06:08] LABS: BASOPHILS # (AUTO) 0.05 x10^3/uL (0-0.1); BASOPHILS % (AUTO) 1 % (0-1); EOSINOPHILS # (AUTO) 0.03 x10^3/uL (0-0.4); EOSINOPHILS % (AUTO) 1 % (1-7); LYMPHOCYTES # (AUTO) 0.73 x10^3/uL (1-3.4); LYMPHOCYTES % (AUTO) 13 % (22-44); MD NO; MEAN CORPUSCULAR HEMOGLOBIN 29.9 pg (27.5-34.5); MEAN CORPUSCULAR HGB CONC 31.9 g/dL (33.2-36.2); MEAN CORPUSCULAR VOLUME 93.9 fL (81-97); MONOCYTES # (AUTO) 0.41 x10^3/uL (0.2-0.8); MONOCYTES % (AUTO) 7 % (2-9); NEUTROPHILS # (AUTO) 4.63 x10^3/uL (1.8-6.8); NEUTROPHILS % (AUTO) 79 % (42-75); PLATELET COUNT 477 x10^3/uL (130-400); RED BLOOD COUNT 3.28 x10^6/uL (4.38-5.82); RED CELL DISTRIBUTION WIDTH 15.2 % (9.4-14.8)
[2019-08-24 06:48] LABS: INTERNATIONAL NORMALIZED RATIO 1.13 (0.93-1.1)
[2019-08-24 07:51] VITALS: BP 98/68
[2019-08-24] MEDS: PANTOPROZOLE 40MG TABLET PO SCH ×2 (08:36→17:28)
[2019-08-24] MEDS: MAGNESIUM HYDROXIDE 8%, 30ML UDC PO SCH ×2 (08:36→20:11)
[2019-08-24] MEDS: OCTREOTIDE 50 MCG/ML, 1ML (0.05MG/ML) SQ SCH ×3 (08:37→20:12)
[2019-08-24] MEDS: CEFTRIAXONE PMX 1GM/50ML 50 ML IV SCH (08:59)
[2019-08-24] MEDS: WARFARIN HIGH DOSE PROTOCOL XX SCH (12:32)
[2019-08-24 13:01] VITALS: BP 104/61
[2019-08-24] MEDS ORDERED: FAT EMUL IV SCH (17:00)
[2019-08-24] MEDS ORDERED: AMINO ACID 10% IV SCH (17:00)
[2019-08-24] MEDS ORDERED: SMOF TPN IV SCH (17:00)
[2019-08-24] MEDS ORDERED: [UNRECOGNIZED DRUG - OTHER] IV SCH (17:00)
[2019-08-24] MEDS ORDERED: DEXTROSE 70% IV SCH (17:00)
[2019-08-24] MEDS: FILTER, DISP 1.2 MICRON FOR TPN/PVN IV PRN (17:28)
[2019-08-24] MEDS ORDERED: WARFARIN 7.5 MG TABLET PO-COUM SCH (18:00)
[2019-08-24 19:27] VITALS: BP 115/76
[2019-08-24] MEDS: COBICISTAT HOMEMEDPO SCH (19:36)
[2019-08-24] MEDS: TENOFOVIR DISOPROXIL FUMARATE HOMEMEDPO SCH (19:36)
[2019-08-24] MEDS: EMTRICITABINE HOMEMEDPO SCH (19:36)
[2019-08-24] MEDS: [UNRECOGNIZED DRUG - OTHER] HOMEMEDPO SCH (19:36)
[2019-08-24] MEDS: ELVITEGRAVIR HOMEMEDPO SCH (19:36)
[2019-08-24] MEDS: INSULIN REGULAR LOW DOSE QDAY SQ-INSULIN SCH (20:11)
[2019-08-25 01:14] VITALS: BP 116/75
[2019-08-25] MEDS: morphine SULFATE 10 MG/ML, 1ML IVPush PRN ×6 (01:18→20:59)
[2019-08-25 05:31] LABS: INTERNATIONAL NORMALIZED RATIO 1.18 (0.93-1.1); PROTHROMBIN TIME 12.5 Seconds (9.6-11.5)
[2019-08-25 05:40] LABS: CALCIUM 7.4 mg/dL (8.5-10.1); CHLORIDE 102 mmol/L (98-107)
[2019-08-25 05:42] LABS: ANION GAP 4 mmol/L (5-15); CREATININE 0.29 mg/dL (0.7-1.3)
[2019-08-25 07:57] VITALS: BP 111/70
[2019-08-25] MEDS: PANTOPROZOLE 40MG TABLET PO SCH ×2 (08:44→16:54)
[2019-08-25] MEDS: CEFTRIAXONE PMX 1GM/50ML 50 ML IV SCH (08:44)
[2019-08-25] MEDS: ENOXAPARIN 60 MG/0.6 ML SQ SCH ×2 (08:45→20:47)
[2019-08-25] MEDS: OCTREOTIDE 50 MCG/ML, 1ML (0.05MG/ML) SQ SCH ×3 (08:45→20:47)
[2019-08-25] MEDS: MAGNESIUM HYDROXIDE 8%, 30ML UDC PO SCH ×3 (08:45→20:47)
[2019-08-25] MEDS: WARFARIN HIGH DOSE PROTOCOL XX SCH (12:00)
[2019-08-25 12:37] VITALS: BP 128/76
[2019-08-25] MEDS: FILTER, DISP 1.2 MICRON FOR TPN/PVN IV PRN (16:54)
[2019-08-25] MEDS ORDERED: DEXTROSE 70% IV SCH (17:00)
[2019-08-25] MEDS ORDERED: SMOF TPN IV SCH (17:00)
[2019-08-25] MEDS ORDERED: [UNRECOGNIZED DRUG - OTHER] IV SCH (17:00)
[2019-08-25] MEDS ORDERED: AMINO ACID 10% IV SCH (17:00)
[2019-08-25] MEDS ORDERED: FAT EMUL IV SCH (17:00)
[2019-08-25] MEDS ORDERED: WARFARIN 7.5 MG TABLET PO-COUM SCH (18:00)
[2019-08-25 20:05] VITALS: BP 108/74
[2019-08-25] MEDS: ELVITEGRAVIR HOMEMEDPO SCH (20:47)
[2019-08-25] MEDS: EMTRICITABINE HOMEMEDPO SCH (20:47)
[2019-08-25] MEDS: COBICISTAT HOMEMEDPO SCH (20:47)
[2019-08-25] MEDS: TENOFOVIR DISOPROXIL FUMARATE HOMEMEDPO SCH (20:47)
[2019-08-25] MEDS: [UNRECOGNIZED DRUG - OTHER] HOMEMEDPO SCH (20:47)
[2019-08-25] MEDS: INSULIN REGULAR LOW DOSE QDAY SQ-INSULIN SCH (20:49)
[2019-08-26] MEDS: morphine SULFATE 10 MG/ML, 1ML IVPush PRN ×6 (00:01→19:40)
[2019-08-26 00:13] VITALS: BP 116/77
[2019-08-26 07:29] VITALS: BP 108/77
[2019-08-26 07:57] LABS: INTERNATIONAL NORMALIZED RATIO 1.25 (0.93-1.1); PROTHROMBIN TIME 13.3 Seconds (9.6-11.5)
[2019-08-26] MEDS: ENOXAPARIN 60 MG/0.6 ML SQ SCH ×2 (08:00→19:50)
[2019-08-26] MEDS: MAGNESIUM HYDROXIDE 8%, 30ML UDC PO SCH ×2 (08:12→19:51)
[2019-08-26] MEDS: CEFTRIAXONE PMX 1GM/50ML 50 ML IV SCH (08:12)
[2019-08-26] MEDS: PANTOPROZOLE 40MG TABLET PO SCH ×2 (08:12→17:12)
[2019-08-26] MEDS: OCTREOTIDE 50 MCG/ML, 1ML (0.05MG/ML) SQ SCH ×3 (09:00→19:51)
[2019-08-26] MEDS: WARFARIN HIGH DOSE PROTOCOL XX SCH (11:06)
[2019-08-26 12:23] VITALS: BP 114/77
[2019-08-26] MEDS: FILTER, DISP 1.2 MICRON FOR TPN/PVN IV PRN (16:54)
[2019-08-26] MEDS ORDERED: FAT EMUL IV SCH (17:00)
[2019-08-26] MEDS ORDERED: DEXTROSE 70% IV SCH (17:00)
[2019-08-26] MEDS ORDERED: [UNRECOGNIZED DRUG - OTHER] IV SCH (17:00)
[2019-08-26] MEDS ORDERED: SMOF TPN IV SCH (17:00)
[2019-08-26] MEDS ORDERED: AMINO ACID 10% IV SCH (17:00)
[2019-08-26] MEDS ORDERED: WARFARIN 10 MG TABLET PO-COUM SCH (18:00)
[2019-08-26] MEDS ORDERED: ZOLPIDEM 5MG TABLET ONE (19:34)
[2019-08-26] MEDS: ZOLPIDEM 5MG TABLET PO PRN (19:39)
[2019-08-26] MEDS: INSULIN REGULAR LOW DOSE QDAY SQ-INSULIN SCH (19:51)
[2019-08-26] MEDS: COBICISTAT HOMEMEDPO SCH (19:52)
[2019-08-26] MEDS: ELVITEGRAVIR HOMEMEDPO SCH (19:52)
[2019-08-26] MEDS: [UNRECOGNIZED DRUG - OTHER] HOMEMEDPO SCH (19:52)
[2019-08-26] MEDS: EMTRICITABINE HOMEMEDPO SCH (19:52)
[2019-08-26] MEDS: TENOFOVIR DISOPROXIL FUMARATE HOMEMEDPO SCH (19:52)
[2019-08-26 19:56] VITALS: BP 119/82
[2019-08-27] MEDS: morphine SULFATE 10 MG/ML, 1ML IVPush PRN ×6 (00:32→17:37)
[2019-08-27 01:13] VITALS: BP 124/88
[2019-08-27 05:55] LABS: INTERNATIONAL NORMALIZED RATIO 1.65 (0.93-1.1); PROTHROMBIN TIME 17.6 Seconds (9.6-11.5)
[2019-08-27 05:58] LABS: ALANINE AMINOTRANSFERASE 40 U/L (12-78); ALBUMIN 1.1 g/dL (3.4-5.0); ANION GAP 4 mmol/L (5-15); CALCIUM 7.1 mg/dL (8.5-10.1); CHLORIDE 107 mmol/L (98-107); CREATININE 0.39 mg/dL (0.7-1.3)
[2019-08-27 06:01] LABS: ALKALINE PHOSPHATASE 119 U/L (45-117); BILIRUBIN,TOTAL 0.1 mg/dL (0.2-1.0)
[2019-08-27 06:53] VITALS: BP 121/81
[2019-08-27] MEDS: MAGNESIUM HYDROXIDE 8%, 30ML UDC PO SCH ×2 (07:19→20:31)
[2019-08-27] MEDS ORDERED: MAGNESIUM SULFATE PMX 2GM/50ML 50 ML IV ONE (08:00)
[2019-08-27] MEDS ORDERED: CALCIUM GLUCONATE 4.6 MEQ in SODIUM CHLORIDE 0.9% 50 ML IV ONE (08:00)
[2019-08-27] MEDS: OCTREOTIDE 50 MCG/ML, 1ML (0.05MG/ML) SQ SCH ×3 (08:27→20:31)
[2019-08-27] MEDS: ENOXAPARIN 60 MG/0.6 ML SQ SCH ×2 (08:27→20:32)
[2019-08-27] MEDS: PANTOPROZOLE 40MG TABLET PO SCH ×2 (08:28→17:36)
[2019-08-27] MEDS: CEFTRIAXONE PMX 1GM/50ML 50 ML IV SCH (09:20)
[2019-08-27] MEDS: WARFARIN HIGH DOSE PROTOCOL XX SCH (10:59)
[2019-08-27] MEDS ORDERED: FAT EMUL IV SCH (17:00)
[2019-08-27] MEDS ORDERED: SMOF TPN IV SCH (17:00)
[2019-08-27] MEDS ORDERED: AMINO ACID 10% IV SCH (17:00)
[2019-08-27] MEDS ORDERED: [UNRECOGNIZED DRUG - OTHER] IV SCH (17:00)
[2019-08-27] MEDS ORDERED: DEXTROSE 70% IV SCH (17:00)
[2019-08-27] MEDS: FILTER, DISP 1.2 MICRON FOR TPN/PVN IV PRN (17:38)
[2019-08-27] MEDS ORDERED: WARFARIN 7.5 MG TABLET PO-COUM ONE (18:00)
[2019-08-27 19:25] VITALS: BP 116/79
[2019-08-27] MEDS: INSULIN REGULAR LOW DOSE QDAY SQ-INSULIN SCH (20:30)
[2019-08-27] MEDS: MORPHINE SULFATE 4 MG/ML, 1ML IVPush PRN ×2 (20:32→23:51)
[2019-08-27] MEDS: TENOFOVIR DISOPROXIL FUMARATE HOMEMEDPO SCH (20:32)
[2019-08-27] MEDS: COBICISTAT HOMEMEDPO SCH (20:32)
[2019-08-27] MEDS: EMTRICITABINE HOMEMEDPO SCH (20:32)
[2019-08-27] MEDS: ELVITEGRAVIR HOMEMEDPO SCH (20:32)
[2019-08-27] MEDS: [UNRECOGNIZED DRUG - OTHER] HOMEMEDPO SCH (20:32)
[2019-08-28 01:06] VITALS: BP 112/74
[2019-08-28] MEDS: MORPHINE SULFATE 4 MG/ML, 1ML IVPush PRN ×6 (03:05→22:33)
[2019-08-28 06:04] LABS: CALCIUM 7.6 mg/dL (8.5-10.1); CHLORIDE 109 mmol/L (98-107)
[2019-08-28 06:07] LABS: ANION GAP 5 mmol/L (5-15); CREATININE 0.34 mg/dL (0.7-1.3)
[2019-08-28 06:15] LABS: INTERNATIONAL NORMALIZED RATIO 1.75 (0.93-1.1); PROTHROMBIN TIME 18.7 Seconds (9.6-11.5)
[2019-08-28 07:05] VITALS: BP 119/81
[2019-08-28] MEDS ORDERED: CALCIUM GLUCONATE 4.6 MEQ in SODIUM CHLORIDE 0.9% 50 ML IV ONE (07:30)
[2019-08-28] MEDS: PANTOPROZOLE 40MG TABLET PO SCH ×2 (07:41→17:00)
[2019-08-28] MEDS: MAGNESIUM HYDROXIDE 8%, 30ML UDC PO SCH ×2 (07:41→20:04)
[2019-08-28] MEDS: ENOXAPARIN 60 MG/0.6 ML SQ SCH ×2 (08:00→20:00)
[2019-08-28] MEDS: OCTREOTIDE 50 MCG/ML, 1ML (0.05MG/ML) SQ SCH ×3 (09:00→20:06)
[2019-08-28] MEDS: CEFTRIAXONE PMX 1GM/50ML 50 ML IV SCH (09:30)
[2019-08-28] MEDS ORDERED: LIDOCAINE 1%, 10ML ONE (10:47)
[2019-08-28] MEDS: WARFARIN HIGH DOSE PROTOCOL XX SCH (12:00)
[2019-08-28 13:05] VITALS: BP 117/79
[2019-08-28] MEDS ORDERED: FAT EMUL IV SCH (17:00)
[2019-08-28] MEDS ORDERED: DEXTROSE 70% IV SCH (17:00)
[2019-08-28] MEDS ORDERED: AMINO ACID 10% IV SCH (17:00)
[2019-08-28] MEDS ORDERED: SMOF TPN IV SCH (17:00)
[2019-08-28] MEDS ORDERED: [UNRECOGNIZED DRUG - OTHER] IV SCH (17:00)
[2019-08-28] MEDS: FILTER, DISP 1.2 MICRON FOR TPN/PVN IV PRN (17:27)
[2019-08-28] MEDS ORDERED: WARFARIN 10 MG TABLET PO-COUM ONE (18:00)
[2019-08-28 19:16] VITALS: BP 101/67
[2019-08-28] MEDS: COBICISTAT HOMEMEDPO SCH (20:05)
[2019-08-28] MEDS: ELVITEGRAVIR HOMEMEDPO SCH (20:05)
[2019-08-28] MEDS: TENOFOVIR DISOPROXIL FUMARATE HOMEMEDPO SCH (20:05)
[2019-08-28] MEDS: [UNRECOGNIZED DRUG - OTHER] HOMEMEDPO SCH (20:05)
[2019-08-28] MEDS: EMTRICITABINE HOMEMEDPO SCH (20:05)
[2019-08-28] MEDS: INSULIN REGULAR LOW DOSE QDAY SQ-INSULIN SCH (20:05)
[2019-08-28] MEDS: ZOLPIDEM 5MG TABLET PO PRN (20:06)
[2019-08-29 01:23] VITALS: BP 97/62
[2019-08-29] MEDS: MORPHINE SULFATE 4 MG/ML, 1ML IVPush PRN ×3 (03:47→14:16)
[2019-08-29 05:33] LABS: PROTHROMBIN TIME 21.3 Seconds (9.6-11.5)
[2019-08-29 05:36] LABS: ALBUMIN 1.1 g/dL (3.4-5.0); ANION GAP 5 mmol/L (5-15); CALCIUM 7.8 mg/dL (8.5-10.1); CHLORIDE 108 mmol/L (98-107); CREATININE 0.39 mg/dL (0.7-1.3)
[2019-08-29 05:40] LABS: PREALBUMIN 10.2 mg/dL (20.0-40.0)
[2019-08-29 07:29] VITALS: BP 107/76
[2019-08-29] MEDS: PANTOPROZOLE 40MG TABLET PO SCH ×2 (09:05→18:05)
[2019-08-29] MEDS: MAGNESIUM HYDROXIDE 8%, 30ML UDC PO SCH (09:06)
[2019-08-29] MEDS: OCTREOTIDE 50 MCG/ML, 1ML (0.05MG/ML) SQ SCH ×2 (09:06→16:20)
[2019-08-29] MEDS: ENOXAPARIN 60 MG/0.6 ML SQ SCH (09:06)
[2019-08-29] MEDS: WARFARIN HIGH DOSE PROTOCOL XX SCH (12:00)
[2019-08-29] MEDS ORDERED: OXYC10TA47 PO (12:31)
[2019-08-29] MEDS ORDERED: WARF-36 PO (13:59)
[2019-08-29 14:28] VITALS: BP 104/71
[2019-08-29] MEDS ORDERED: [UNRECOGNIZED DRUG - OTHER] IV SCH (17:00)
[2019-08-29] MEDS ORDERED: SMOF TPN IV SCH (17:00)
[2019-08-29] MEDS ORDERED: DEXTROSE 70% IV SCH (17:00)
[2019-08-29] MEDS ORDERED: AMINO ACID 10% IV SCH (17:00)
[2019-08-29] MEDS ORDERED: FAT EMUL IV SCH (17:00)
[2019-08-29] MEDS ORDERED: WARFARIN 7.5 MG TABLET PO-COUM ONE (18:00)
== END 2019-08-29 18:20 | disposition home or self-care (01) | DRG 280 ==
LOC: ED 21:33 → EDIP 23:34 → 4EST 08-21 00:18
PROVIDERS: ADMIT Family Medicine; ATTEND Family Medicine
PROC: 02HV33Z Insertion of Infusion Device into Superior Vena Cava, Percutaneous Approach (ICD-10-PCS; principal; 2019-08-23)
PROC: B5181ZA Fluoroscopy of Superior Vena Cava using Low Osmolar Contrast, Guidance (ICD-10-PCS; 2019-08-23)
PROC: B548ZZA Ultrasonography of Superior Vena Cava, Guidance (ICD-10-PCS; 2019-08-23)
PROC: 0W9G3ZZ Drainage of Peritoneal Cavity, Percutaneous Approach (ICD-10-PCS; 2019-08-28)
DX: K70.31 Alcoholic cirrhosis of liver with ascites (principal); E43 Unspecified severe protein-calorie malnutrition; K85.90 Acute pancreatitis without necrosis or infection, unspecified; D64.9 Anemia, unspecified; E87.1 Hypo-osmolality and hyponatremia; K86.1 Other chronic pancreatitis; Z68.1 Body mass index [BMI] 19.9 or less, adult; F10.10 Alcohol abuse, uncomplicated; F17.200 Nicotine dependence, unspecified, uncomplicated; I10 Essential (primary) hypertension; K82.8 Other specified diseases of gallbladder; K86.3 Pseudocyst of pancreas; Z79.01 Long term (current) use of anticoagulants; Z86.718 Personal history of other venous thrombosis and embolism
CPT/HCPCS: 36415; 36573; 49083; 71045; 71275; 76700; 80048; 80053; 80069; 82962; 83605; 83690; 83735; 84100; 84134; 84145; 84478; 84484; 85025; 85610; 85730; 86361; 87040; 87070; 87205; 89051; 93005; 96374; 96376; G0378; J0610; J0696; J1644; J1650; J2354; J2405; J3411; J3475; J3480; J7042; Q9967; C1751; J1720; J2270; J3420; J7040